=== PATIENT | female | born 1950 | race Caucasian/White ===

== ENCOUNTER → 2016-04-29 | Outpatient (CLI) | payer OTHER ==
[~2016-04-29] MED LIST: ALLER-EASE180 MG PO; ALLOPURINOL 30300 M2 PO; ATENOLOL 25 MG25 M1 PO; BIOTIN10 MG PO; CALCIUM 500 +1 EAC5 PO; CALCIUM500 M1 PO; CHILDREN'S ASPI81 M1 PO; CHOLEST CARE500 MG PO; CO Q-10100 MG PO; DAILY VITAMIN1 EAC5 PO; FISH OIL 1,001000 M2 PO; HYDROCODONE-AP1 EAC6 PO; NEXIUM40 MG PO; POTASSIUM GLUCO90 MG PO; SUPER B-50 COM1 EACH PO; TRIPLE FLEX CA1 EACH PO; ULTRAM 50MG TAB50 MG PO; VITAMIN E400 UNI2 PO
[2016-04-29 11:01] LABS: CREATININE 0.9 mg/dL (0.6-1.3)
== END ==
LOC: CAT 10:08
PROVIDERS: Surgery
DX: K43.9 Ventral hernia without obstruction or gangrene (principal); R10.9 Unspecified abdominal pain

== ENCOUNTER 2016-10-30 05:46 | Day surgery (SDC) | payer OTHER ==
[~2016-10-30] VITALS: Ht 167.6 cm; Wt 117.0 kg
--- NOTE | ~2016-10-30 | EKG ---
[address] [address] ELECTROCARDIOGRAM REPORT Name: SUMAYALISETTE Room #: [facility]#: [id number] Admission: 10/30/16 Attend Phys: Percy Escamilla MD Discharge: 10/30/16 Date of : 52 Report #: [id number] THIS REPORT FOR: //name// [facility] Test Date: 2016-10-30 Test Time: 07:38:18 Pat Name: LISETTE SHELL Department: Room: 150 3 Gender: F Computer Game Tester: CIELO : 1950 Requested By: Percy Escamilla Order Number: [id number] MD: Tad Dial Measurements Intervals [place] Rate: 60 P: 31 MT: 185 QRS: -42 QRSD: 109 T: -13 QT: 469 QTc: 469 Interpretive Statements Sinus rhythm Abnormal R-wave progression, early transition Left ventricular hypertrophy Compared to ECG 10/18/2014 09:21:40 Ventricular premature complex(es) no longer present Electronically Signed On 11-01-2016 13:08:12 CDT by Tad Dial [email or web address] <ELECTRONICALLY SIGNED> By: Tad Dial MD, FACC 11/01/16 1308 0738 Tad Dial MD, [facility] /EPI
[~2016-10-30 05:46] MED LIST changes: +NORVASC5 MG PO; +SORINE 80 MG TA80 M1 PO
[2016-10-30 08:00] VITALS: BP 113/55
[2016-10-30] MEDS ORDERED: ULTRA-LIGHT RO1 EACH MC (10:10)
[2016-10-30 11:05] VITALS: BP 113/55
[2016-12-11] MEDS ORDERED: SOTALOL 120 MG120 M1 PO (11:38)
[2016-12-11] MEDS ORDERED: ASPIR 8181 MG PO (11:39)
[2016-12-11] MEDS ORDERED: PRESERVISION T1 EACH PO (11:40)
[2016-12-11] MEDS ORDERED: TRIPLE FLEX CA1 EACH PO (11:42)
[2016-12-11] MEDS ORDERED: MULTIVITAMINS1 EAC7 PO (11:56)
== END 2016-10-30 11:45 | disposition home or self-care (01) ==
LOC: OR → TBA 05:46 → OR 11:45
DX: M23.251 Derangement of posterior horn of lateral meniscus due to old tear or injury, right knee (principal); M23.221 Derangement of posterior horn of medial meniscus due to old tear or injury, right knee; M94.261 Chondromalacia, right knee; Z98.890 Other specified postprocedural states; Z79.899 Other long term (current) drug therapy; Z88.8 Allergy status to other drugs, medicaments and biological substances
CPT/HCPCS: 50010; 50101; 50405; 51038; 54170; 56526; 62110; 62900; 70005

== ENCOUNTER 2016-12-18 05:10 | Inpatient (IN) | payer OTHER ==
[~2016-12-18] VITALS: Ht 167.6 cm; Wt 94.8 kg
--- NOTE | ~2016-12-18 | S ---
[facility] [place] [address] SURGICAL PATH RPT PROCEDURE Name: LISETTE CHOE Room #: 440-P ADM IN M.R.#: [id number] Admission: 12/18/16 Date of : 52 Discharge: Report #: [id number] Path Case #: [id number] PATHOLOGY REPORT COLLECTION DATE: 12/18/2016 RECEIVED DATE: 12/18/2016 SUBMITTING PHYS: Dr. Henrietta Swenson OTHER PHYS: Dr. Alfonso Basilio SPECIMEN(S) RECEIVED: A.Hernia sac and abdominal wall * * * * * * * * * * * * FINAL DIAGNOSIS: Fibroadipose tissue, hernia sac and abdominal wall, repair: - Congestion. 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 (IUV:pit; 12/21/2016) PATHOLOGIST: Starr Hook M.D. REPORT ELECTRONICALLY SIGNED BY: Starr Hook M.D. DATE/TIME: 12/21/2016 16:35 * * * * * * * * * * * * GROSS PATHOLOGY: Received in formalin labeled "Lisette Choe, hernia sac and abdominal wall," is a piece of fibroadipose tissue measuring 5.0 x 3.5 x 2.3 cm. additionally present in the container is a portion of pink-madrid membranous soft tissue measuring 6.0 x 3.8 x 1.2 cm No nodules or lesions are identified. Fabric Sourcer tissue is submitted in cassette A1. ([facility]; 12/19/2016) CLINICAL HISTORY: Ventral hernia INITIAL CPT CODE(S): A; 62509 Professional services performed by [facility] at [facility] [address], [place] [address] Technical services performed by [facility] at [address] [place] [id number]. [facility] [address] [place] [address] SURGICAL PATH RPT PROCEDURE Name: LISETTE CHOEE Room #: 440-P ADM IN M.R.#: [id number] Admission: 12/18/16 Date of : 52 Discharge: Report #: [id number] Path Case #: [id number] [facility], located [facility] [address] [address] PHONE: [phone] DIRECTOR: Tye Quiles M.D. * * * END OF REPORT * * *
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
[~2016-12-18 05:10] MED LIST changes: +ASPIR 8181 MG PO; +MULTIVITAMINS1 EAC7 PO; +PRESERVISION T1 EACH PO; +SOTALOL 120 MG120 M1 PO; +ULTRA-LIGHT RO1 EACH MC
[2016-12-18 06:57] LABS: HEMATOCRIT 40.4 % (37.0-47.0); HEMOGLOBIN 13.4 gm/dL (12.0-15.0)
[2016-12-18 08:29] VITALS: BP 110/55
[2016-12-18 11:24] VITALS: BP 102/56
[2016-12-18 16:00] VITALS: BP 118/70
[2016-12-18 17:24] VITALS: BP 118/70
[2016-12-18 19:50] VITALS: BP 101/63
[2016-12-19 05:13] LABS: CALCIUM 8.4 mg/dL (8.5-10.1); CREATININE 0.9 mg/dL (0.6-1.0); POTASSIUM 4.3 mmol/L (3.5-5.1)
[2016-12-19 05:14] LABS: HEMATOCRIT 35.4 % (37.0-47.0); HEMOGLOBIN 11.7 gm/dL (12.0-15.0); MCH 29.1 pg (26.0-34.0); MCV 88.3 fL (80.0-100.0); RDW 15.5 % (10.5-14.5); WBC 9.5 thou/uL (4.0-11.0)
[2016-12-19 05:23] VITALS: BP 105/59
[2016-12-19 08:44] VITALS: BP 106/56
[2016-12-19 16:34] VITALS: BP 100/55
[2016-12-19 19:12] VITALS: BP 110/56
[2016-12-20 04:26] VITALS: BP 127/75
[2016-12-20 04:37] LABS: ABSOLUTE NEUTROPHILS 5.2 thou/uL (1.4-8.2); BASOPHILS 0.5 % (0.0-2.0); EOSINOPHILS 3.3 % (0.0-3.0); HEMATOCRIT 34.3 % (37.0-47.0); HEMOGLOBIN 11.4 gm/dL (12.0-15.0); LYMPHOCYTES 22.4 % (24.0-44.0); MCH 29.4 pg (26.0-34.0); MCHC 33.1 g/dL (28.0-37.0); MCV 88.7 fL (80.0-100.0); MONOCYTES 7.5 % (1.0-8.0); PLATELET COUNT 156 thou/uL (150-400); POLYS 66.3 % (36.0-66.0); RBC 3.87 mil/uL (4.20-5.00); RDW 16.2 % (10.5-14.5); WBC 7.8 thou/uL (4.0-11.0)
[2016-12-20 04:41] LABS: MANUAL DIFF NO
[2016-12-20 04:53] LABS: CALCIUM 8.3 mg/dL (8.5-10.1); CREATININE 0.8 mg/dL (0.6-1.0); POTASSIUM 4.5 mmol/L (3.5-5.1)
[2016-12-20 08:33] VITALS: BP 133/63
[2016-12-20 16:31] VITALS: BP 100/62
[2016-12-20 19:56] VITALS: BP 96/58
[2016-12-21 03:54] VITALS: BP 98/62
[2016-12-21 06:15] LABS: ABSOLUTE NEUTROPHILS 6.2 thou/uL (1.4-8.2); BASOPHILS 0.6 % (0.0-2.0); EOSINOPHILS 3.3 % (0.0-3.0); HEMATOCRIT 36.4 % (37.0-47.0); HEMOGLOBIN 11.8 gm/dL (12.0-15.0); LYMPHOCYTES 18.5 % (24.0-44.0); MANUAL DIFF NO; MCH 28.7 pg (26.0-34.0); MCHC 32.4 g/dL (28.0-37.0); MCV 88.6 fL (80.0-100.0); MONOCYTES 7.1 % (1.0-8.0); PLATELET COUNT 175 thou/uL (150-400); POLYS 70.5 % (36.0-66.0); RBC 4.11 mil/uL (4.20-5.00); RDW 15.5 % (10.5-14.5); WBC 8.9 thou/uL (4.0-11.0)
[2016-12-21 06:29] LABS: CALCIUM 8.4 mg/dL (8.5-10.1); CREATININE 0.9 mg/dL (0.6-1.0); POTASSIUM 4.4 mmol/L (3.5-5.1)
[2016-12-21] MEDS ORDERED: PERCOCET 5-3251 EACH PO (08:58)
[2016-12-21 10:51] VITALS: BP 118/70
== END 2016-12-21 17:18 | disposition home health service (06) | DRG 355 ==
LOC: TBA 05:10 → 4S 05:10 → PRE 15:52 → 4S 12-21 17:18
PROVIDERS: Surgery
PROC: 0WUF0JZ Supplement Abdominal Wall with Synthetic Substitute, Open Approach (ICD-10-PCS; principal; 2016-12-18)
PROC: 0JB80ZZ Excision of Abdomen Subcutaneous Tissue and Fascia, Open Approach (ICD-10-PCS; principal; 2016-12-18)
PROC: 0JX80ZZ Transfer Abdomen Subcutaneous Tissue and Fascia, Open Approach (ICD-10-PCS; principal; 2016-12-18)
DX: K43.0 Incisional hernia with obstruction, without gangrene (principal); E11.9 Type 2 diabetes mellitus without complications; F41.9 Anxiety disorder, unspecified; M54.5 Low back pain; J98.9 Respiratory disorder, unspecified; K21.9 Gastro-esophageal reflux disease without esophagitis; E66.01 Morbid (severe) obesity due to excess calories; Z68.33 Body mass index [BMI] 33.0-33.9, adult; Z88.5 Allergy status to narcotic agent; Z88.6 Allergy status to analgesic agent; Z88.8 Allergy status to other drugs, medicaments and biological substances
CPT/HCPCS: 10100; 50010; 50101; 50331; 50386; 50455; 50507; 50648; 56524; 56525; 56526; 56527; 56530; 57092; 62110; 62900; 70005

== ENCOUNTER 2016-12-25 09:59 | Emergency (ER) | payer OTHER ==
[~2016-12-25] VITALS: Ht 167.6 cm; Wt 112.0 kg
--- NOTE | ~2016-12-25 | EKG ---
[place] [address] [address] [facility] [place] [address] ELECTROCARDIOGRAM REPORT Name: ELLIE SHELLANISA DOMINGUEZE Room #: DEP [facility]#: [id number] Admission: 12/25/16 Attend Phys: Discharge: 12/25/16 Date of : 52 Report #: [id number] THIS REPORT FOR: //name// [facility] ED Test Date: 2016-12-25 Test Time: 10:13:26 Pat Name: LISETTE SHELL Department: Room: Gender: F Sawyer Cork Slabs: [id number] : 1950 Requested By: Jeanine Paul Order Number: [id number] MD: Tad Dial Measurements Intervals [place] Rate: 54 P: 43 ND: 185 QRS: -24 QRSD: 101 T: -17 QT: 491 QTc: 466 Interpretive Statements Sinus rhythm Ventricular trigeminy Borderline left axis deviation Abnormal R-wave progression, early transition Compared to ECG 10/30/2016 07:38:18 Ventricular premature complex(es) now present Electronically Signed On 12-28-2016 13:23:45 CDT by Tad Dial [email or web address] <ELECTRONICALLY SIGNED> By: Tad Dial MD, [facility] 12/28/16 1323 1013 1013 Tad Dial MD, [facility] /EPI
[~2016-12-25 09:59] MED LIST changes: +PERCOCET 5-3251 EACH PO
[2016-12-25 10:22] LABS: ABSOLUTE NEUTROPHILS 6.3 thou/uL (1.4-8.2); BASOPHILS 0.5 % (0.0-2.0); EOSINOPHILS 6.9 % (0.0-3.0); HEMATOCRIT 38.8 % (37.0-47.0); LYMPHOCYTES 17.8 % (24.0-44.0); MCH 29.2 pg (26.0-34.0); MCHC 33.5 g/dL (28.0-37.0); MCV 87.2 fL (80.0-100.0); MONOCYTES 5.6 % (1.0-8.0); PLATELET COUNT 225 thou/uL (150-400); POLYS 69.2 % (36.0-66.0); RBC 4.45 mil/uL (4.20-5.00); RDW 15.1 % (10.5-14.5); WBC 9.1 thou/uL (4.0-11.0)
[2016-12-25 10:24] LABS: MANUAL DIFF NO
[2016-12-25 10:30] LABS: ANION GAP 6 mmol/L (7-16); BUN 25 mg/dL (7-18); CALCIUM 9.4 mg/dL (8.5-10.1); CHLORIDE 103 mmol/L (98-107); CO2 29 mmol/L (21-32); CREATININE 0.9 mg/dL (0.6-1.0); GLUCOSE 104 mg/dL (74-106); POTASSIUM 4.3 mmol/L (3.5-5.1); SODIUM 138 mmol/L (136-145)
[2016-12-25 10:39] LABS: ALBUMIN 3.1 g/dL (3.4-5.0); ALKALINE PHOSPHATASE 97 U/L (46-116); SGOT 44 U/L (15-37); SGPT 40 U/L (30-65); TOTAL BILIRUBIN 0.3 mg/dL (<0.1-1.0); TOTAL PROTEIN 8.3 g/dL (6.4-8.2); TROPONIN-I < 0.04 ng/mL (<0.04-0.07)
[2016-12-25 11:39] LABS: URINE BILIRUBIN NEGATIVE (Negative); URINE BLOOD NEGATIVE (Negative); URINE COLOR YELLOW; URINE GLUCOSE-RANDOM* NEGATIVE (Negative); URINE KETONES NEGATIVE (Negative); URINE NITRITE NEGATIVE (Negative); URINE PROTEIN (DIPSTICK) NEGATIVE (Negative); URINE UROBILINOGEN 0.2 E.U./dl (0.2-1.0)
[2016-12-25 16:26] VITALS: BP 142/78
== END 2016-12-25 16:40 | disposition home or self-care (01) ==
LOC: ER 09:59
PROVIDERS: Nurse Practitioner Family
DX: E86.0 Dehydration (principal); K21.9 Gastro-esophageal reflux disease without esophagitis; E78.00 Pure hypercholesterolemia, unspecified; I48.91 Unspecified atrial fibrillation; M19.90 Unspecified osteoarthritis, unspecified site; Z90.710 Acquired absence of both cervix and uterus; Z98.890 Other specified postprocedural states; Z88.6 Allergy status to analgesic agent; Z88.8 Allergy status to other drugs, medicaments and biological substances; Z88.5 Allergy status to narcotic agent

== ENCOUNTER 2017-12-17 17:06 | Emergency (ER) | payer OTHER ==
[~2017-12-17] VITALS: Ht 167.6 cm; Wt 115.7 kg
--- NOTE | ~2017-12-17 | EKG ---
[place] [address] [address] [facility] [facility] [place] [address] ELECTROCARDIOGRAM REPORT Name: ELLIE SHELLANISA DOMINGUEZE Room #: DEP [facility]#: [id number] Admission: 12/17/17 Attend Phys: Discharge: 12/17/17 Date of : 52 Report #: [id number] THIS REPORT FOR: //name// [facility] ED Test Date: 2017-12-17 Test Time: 17:16:26 Pat Name: LISETTE SHELL Department: Room: Gender: F Removable Prosthodontist: MZOOK : 1950 Requested By: Yakelin Holliday Order Number: [id number] MD: Tad Dial Measurements Intervals [place] Rate: 69 P: 25 GA: 190 QRS: -43 QRSD: 91 T: 7 QT: 426 QTc: 457 Interpretive Statements Sinus rhythm Abnormal R-wave progression, early transition Baseline wander in lead(s) V3 Compared to ECG 12/25/2016 10:13:26 Ventricular premature complex(es) no longer present Electronically Signed On 12-18-2017 13:00:42 CDT by Tad Dial [email or web address] <ELECTRONICALLY SIGNED> By: Tad Dial MD, [facility] 12/18/17 1300 1716 1716 Tad Dial MD, [facility] /EPI
[2017-12-17 17:52] LABS: ABSOLUTE NEUTROPHILS 5.1 thou/uL (1.4-8.2); EOSINOPHILS 3.5 % (0.0-3.0); HEMATOCRIT 39.2 % (37.0-47.0); MCH 27.8 pg (26.0-34.0); MCHC 33.1 g/dL (28.0-37.0); MCV 83.9 fL (80.0-100.0); MONOCYTES 5.4 % (1.0-8.0); PLATELET COUNT 197 thou/uL (150-400); POLYS 65.1 % (36.0-66.0); RBC 4.67 mil/uL (4.20-5.00); RDW 16.6 % (10.5-14.5); WBC 7.9 thou/uL (4.0-11.0)
[2017-12-17 18:11] LABS: ANION GAP 10 mmol/L (7-16); BUN 24 mg/dL (7-18); CALCIUM 9.1 mg/dL (8.5-10.1); CHLORIDE 101 mmol/L (98-107); CO2 26 mmol/L (21-32); CREATININE 0.8 mg/dL (0.6-1.0); GLUCOSE 93 mg/dL (74-106); POTASSIUM 4.1 mmol/L (3.5-5.1); SODIUM 137 mmol/L (136-145)
[2017-12-17 18:14] LABS: URINE BILIRUBIN NEGATIVE (Negative); URINE BLOOD NEGATIVE (Negative); URINE CLARITY CLEAR; URINE COLOR YELLOW; URINE GLUCOSE-RANDOM* NEGATIVE (Negative); URINE KETONES NEGATIVE (Negative); URINE LEUKOCYTES-REFLEX NEGATIVE (Negative); URINE NITRITE-REFLEX NEGATIVE (Negative); URINE PROTEIN (DIPSTICK) NEGATIVE (Negative); URINE SPECIFIC GRAVITY <= 1.005 (1.005-1.035); URINE UROBILINOGEN 0.2 E.U./dl (0.2-1.0)
[2017-12-17 18:19] LABS: ALBUMIN 3.1 g/dL (3.4-5.0); SGOT 16 U/L (15-37); SGPT 20 U/L (30-65); TOTAL BILIRUBIN 0.3 mg/dL (<0.1-1.0); TOTAL PROTEIN 8.1 g/dL (6.4-8.2); TROPONIN-I <0.06 ng/mL (<0.06)
[2017-12-17] MEDS ORDERED: PREDNISONE 20 M20 MG PO (19:39)
[2017-12-17] MEDS ORDERED: CARAFATE 1 GM TA1 G1 PO (19:48)
[2017-12-17] MEDS ORDERED: ALBUTEROL2.5 MG/31 INH (20:20)
[2017-12-17 20:50] VITALS: BP 118/70
== END 2017-12-17 20:25 | disposition home or self-care (01) ==
LOC: ER 17:06
PROVIDERS: Physician Assistant
DX: J98.01 Acute bronchospasm (principal); M10.9 Gout, unspecified; K21.9 Gastro-esophageal reflux disease without esophagitis; E78.00 Pure hypercholesterolemia, unspecified; M19.90 Unspecified osteoarthritis, unspecified site; I48.91 Unspecified atrial fibrillation; I10 Essential (primary) hypertension; Z87.19 Personal history of other diseases of the digestive system; Z88.8 Allergy status to other drugs, medicaments and biological substances; Z88.5 Allergy status to narcotic agent; Z91.048 Other nonmedicinal substance allergy status; Z98.890 Other specified postprocedural states; Z90.710 Acquired absence of both cervix and uterus

== ENCOUNTER 2018-04-16 14:28 | Inpatient (IN) | payer OTHER ==
[~2018-04-16] VITALS: Ht 167.6 cm; Wt 117.5 kg
--- NOTE | ~2018-04-16 | EKG ---
[address] [address] ELECTROCARDIOGRAM REPORT Name: LISETTE SHELL Room #: 358-P ADM IN M.R.#: [id number] Admission: 04/16/18 Attend Phys: Jim Chauhan MD Discharge: Date of : 52 Report #: [id number] THIS REPORT FOR: //name// [facility] ED Test Date: 2018-04-16 Test Time: 17:15:19 Pat Name: LISETTE SHELL Department: Room: 358 Gender: F Curriculum And Instruction Specialist: DAYAMI : 1950 Requested By: Sabrina Sutton Order Number: [id number] MD: Bruce Mckee Measurements Intervals [place] Rate: 67 P: 41 NE: 186 QRS: -52 QRSD: 92 T: 2 QT: 434 QTc: 458 Interpretive Statements Sinus rhythm Left anterior fascicular block Abnormal R-wave progression, early transition Borderline T abnormalities, inferior leads Compared to ECG 12/17/2017 17:16:26 Left anterior fascicular block now present T-wave abnormality now present Electronically Signed On 04-18-2018 11:08:27 AUTOMOTIVE SHOP FOREMAN by Bruce Mckee [email or web address] <ELECTRONICALLY SIGNED> By: Bruce Mckee MD 04/18/18 1108 1715 1715 Bruce Mckee MD /EPI
--- NOTE | ~2018-04-16 | CATHLAB ---
[facility] [address] [place] [address] INVASIVE PROCEDURE REPORT Name: LISETTE SHELL Room #: 358-P ADM IN .R.#: [id number] Admission: 04/16/18 Attend Phys: Jim Chauhan MD Discharge: Date of : 52 Date of Service: 04/18/18 1139 Report #: [id number] THIS REPORT FOR: //name// APPROVED REPORT Study performed: 04/18/2018 08:32:18 Patient Details Patient Status: In-Patient Room #: The patient is a 67 year-old female Event Personnel Bakari Resendez Director Of Partnerships, Dustin Grace RN RN, Romana Manning RTR, Itzel Horton Amber Monitor Procedures Performed Art Access - R femoral artery* 76057 Initial Mod Sed Same Phys/QHP Gr5y [id number] 96184 Mod Sed Same Phys/QHP Ea [id number] Left Heart Cath w/or w/o Coronaries [id number] [facility] Hemostasis with Manual pressure Indication Arrhythmia, Dyspnea, Positive stress test, Chest pain Risk Factors Physical Activity, Hypertension Procedure Narrative The patient was brought urgently to the Cardiac Catheterization Laboratory and was prepped and draped in a sterile manner. The Right Groin^ was infiltrated with 1% Lidocaine subcutaneous anesthesia. A PINNACLE 4FR Sheath #[id number] sheath was inserted into the RFA^. Coronary angiography was performed using coronary diagnostic catheters. The right coronary system was accessed and visualized with a JR 4 catheter. The left coronary system was accessed and visualized with a JL 4 catheter. The left ventricle was accessed and visualized with a Pigtail catheter. Left ventricular/Aortic Valve gradient assessed via catheter pullback. Left ventriculogram was performed in PASCAL projection. Hemostasis was obtained with manual pressure following sheath removal without any complications. The patient tolerated the procedure well and there were no complications associated with the procedure. There was no hematoma. Intraoperative Conscious Sedation Sedation start time: 09:05 Case end Time: [facility] [address] [place] [address] INVASIVE PROCEDURE REPORT Name: LISETTE SHELL THIAGO Room #: 358-P [facility]#: [id number] Admission: 04/16/18 Attend Phys: Jim Chauhna MD Discharge: Date of : 52 Date of Service: 04/18/18 1139 Report #: [id number] 09:34 Fentanyl --50 mcg Versed 1 mg Fluoro Time: 1.50 minutes Dose: DAP 4352 cGycm2 559 mGy Contrast Type and Amount: Omnipaque 80 ml Coronary Angiography The patient's coronary anatomy is right dominant. Diagnostic Cath Left Main This is a patent vessel, with no flow-limiting lesions. LAD This is a moderate size caliber vessel, traversing the anterior wall and wrapping around the apex. There may be some minimal luminal irregularities within the mid segment. Diagonal 1 It is difficult to evaluate due to overlapping branch vessels originating within the same segment of the LAD. This is a patent vessel with no flow-limiting lesions. There may be some mild disease in the ostium. Circumflex This is a moderate size caliber vessel, patent with no flow-limiting lesions. Supplies 2 moderate size OM vessels. OM1 This is a patent vessel, with no flow-limiting lesions. OM2 This is a patent vessel, with no flow-limiting lesions. Right Coronary There is a dominant vessel, appears to have minimal luminal irregularities in the mid segment. R PDA This is a small-caliber vessel, with no flow-limiting lesions. RPLV This is a small-caliber vessel, with no flow-limiting lesions. Left Ventriculography The left ventricle is normal in size with normal contractility. The left ventricular ejection fraction is estimated to be 55-60%. Hemodynamics The aortic pressure is 157/81 mmHg with a mean of 111 mmHg. The left ventricular pressure is 142/9 mmHg with a mean of mmHg. The left ventricular end diastolic pressure is 26 mmHg. Conclusion 1. Patent coronary arteries with no flow-limiting lesions. There may be some mild disease in the first diagonal artery. [facility] [address] [address] INVASIVE PROCEDURE REPORT Name: LISETTE SHELL THIAGO Room #: 358-P ADM IN M.R.#: [id number] Admission: 04/16/18 Attend Phys: Jim Chauhan MD Discharge: Date of : 52 Date of Service: 04/18/18 1139 Report #: [id number] 2. Normal LV systolic function. 3. Recommend aggressive risk factor management. <ELECTRONICALLY SIGNED> By: Bakari Resendez MD 04/18/18 1139 1139 Bakari Resendez MD /INF
--- NOTE | ~2018-04-16 | EKG ---
[address] [address] ELECTROCARDIOGRAM REPORT Name: LISETTE SHELL Room #: 358-P ADM IN M.R.#: [id number] Admission: 04/16/18 Attend Phys: Jim Chauhan MD Discharge: Date of : 52 Report #: [id number] THIS REPORT FOR: //name// [facility] ED Test Date: 2018-04-16 Test Time: 14:38:06 Pat Name: LISETTE SHELL Department: Room: 358 Gender: F Manager Trading: CHRIS : 1950 Requested By: Sabrina Sutton Order Number: [id number] MD: Bruce Mckee Measurements Intervals [place] Rate: 69 P: 24 [place]: 185 QRS: -51 QRSD: 99 T: 19 QT: 440 QTc: 472 Interpretive Statements Sinus rhythm Ventricular premature complex LAD, consider left anterior fascicular block Compared to ECG 12/17/2017 17:16:26 Ventricular premature complex(es) now present Electronically Signed On 04-18-2018 11:07:48 GLASS TUBE BENDER by Bruce Mckee [email or web address] <ELECTRONICALLY SIGNED> By: Bruce Mckee MD 04/18/18 1107 1438 1438 Bruce Mckee MD /EPI
--- NOTE | ~2018-04-16 | HC ---
[facility] [place] [address] CONSULTATION Name: LISETTE SHELL Room #: 358-[facility] IN M.R.#: [id number] Admission: 04/16/18 Attend Phys: Jim Chauhan MD Discharge: 04/18/18 Date of : 52 Report #: [id number] THIS REPORT FOR: //name// CC: Jim Chauhan [facility] physician/PCP CARDIOLOGY CONSULTATION REASON FOR CONSULTATION: Chest pain. HISTORY OF PRESENT ILLNESS: The patient is a 67-year-old female with a history of symptomatic PVCs, previously followed by Dr. Barragan at [facility]. She was treated with sotalol 120 mg b.i.d. She follows with Dr. Swenson as she has had multiple recurrent abdominal surgeries for incarcerated recurrent incisional ventral hernias, with last surgery in 11/2016. She recently saw Dr. Spivey in clinic and she complained of some exertional chest heaviness and tightness that was relieved with rest that would radiate to the neck and was associated with shortness of breath. She, therefore, underwent a nuclear stress test a few weeks ago, which showed some reversible anterior and apical ischemia. She called in yesterday with worsening chest pain. Recently, her sotalol was discontinued and started on metoprolol. She feels that this correlated with the increased palpitations and worsening chest pain. She denies PND or orthopnea. She denies presyncope or syncope. PAST MEDICAL HISTORY: Includes: 1. 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 2. Hypertension. 3. Chronic bronchitis. 4. Chronic obstructive pulmonary disease. 5. Recurrent ventral hernias. SOCIAL HISTORY: She does not smoke. FAMILY HISTORY: Noncontributory. ALLERGIES: MULTIPLE AND INCLUDE MORPHINE, NSAIDS, ATENOLOL AND ROSUVASTATIN. MEDICATIONS: Include a recent change from sotalol to Toprol 25 b.i.d., allopurinol, aspirin, fish oil, calcium, multivitamin, potassium, vitamin E, amlodipine and Nexium. REVIEW OF SYSTEMS: GENERAL: She denies fevers or chills. HEENT: No sore throat or congestion. CARDIOVASCULAR: No chest pain currently today. PULMONARY: No productive cough or wheezing. [address] [address] CONSULTATION Name: LISETTE SHELL THIAGO Room #: 358-P [facility] IN ..#: [id number] Admission: 04/16/18 Attend Phys: Jim Chauhan MD Discharge: 04/18/18 Date of : 52 Report #: [id number] GASTROINTESTINAL: No nausea or vomiting. GENITOURINARY: No dysuria. MUSCULOSKELETAL: No myalgias or arthralgias. ENDOCRINE: No heat or cold intolerance. NEUROLOGIC: No focal weakness or prior strokes. PHYSICAL EXAMINATION: VITAL SIGNS: Temperature 36.7, pulse 67, respirations 16, blood pressure 108/62 and sats 95%. GENERAL: She is in no acute distress, alert and oriented x 3. HEENT: Sclerae are anicteric. Oropharynx is clear. NECK: Supple, with no thyromegaly. HEART: Regular rate and rhythm, with no murmurs, rubs or gallops. LUNGS: Clear to auscultation bilaterally. ABDOMEN: Soft, nontender and nondistended, with no hepatosplenomegaly. EXTREMITIES: There is no clubbing, cyanosis or edema. NEUROLOGIC: Cranial nerves 2-12 are intact. DIAGNOSTIC DATA: Her 12-lead EKG shows sinus rhythm, with no ischemic changes and occasional PVCs. Her telemetry shows occasional PVCs and sinus rhythm. LABORATORY DATA: CBC is normal. Chemistry is normal, with a creatinine of 0.8. Troponins are negative x 3. Chest x-ray per my interpretation shows no acute process. ASSESSMENT: 1. Possible unstable angina. 2. Symptomatic premature ventricular contractions. PLAN: In summary, the patient presents with worsening chest pain and recently had an abnormal nuclear stress test. Based on these findings, I have recommended that she undergo cardiac catheterization tomorrow. With regards to her PVCs, these appear to have worsened since transitioning from sotalol to metoprolol. We will therefore resume sotalol 120 b.i.d. If her cardiac catheterization is normal tomorrow, she can be discharged on her sotalol 120 b.i.d. She can follow up with me in 1 month and we can try and optimize her rhythm strategy for PVCs. We may consider having her wear a personnel monitor. <ELECTRONICALLY SIGNED> By: Bruce Mckee MD 04/20/18 1547 1216 26 Bruce Mckee MD /nt
[~2018-04-16 14:28] MED LIST changes: +ALBUTEROL2.5 MG/31 INH; +CARAFATE 1 GM TA1 G1 PO; +PREDNISONE 20 M20 MG PO
[2018-04-16 15:48] VITALS: BP 119/70
[2018-04-16 15:59] LABS: ABSOLUTE NEUTROPHILS 4.9 thou/uL (1.4-8.2); BASOPHILS 1.2 % (0.0-2.0); EOSINOPHILS 3.5 % (0.0-3.0); HEMATOCRIT 39.7 % (37.0-47.0); LYMPHOCYTES 23.4 % (24.0-44.0); MCHC 32.8 g/dL (28.0-37.0); MCV 85.5 fL (80.0-100.0); MONOCYTES 6.6 % (1.0-8.0); PLATELET COUNT 203 thou/uL (150-400); POLYS 65.3 % (36.0-66.0); RBC 4.65 mil/uL (4.20-5.00); RDW 15.7 % (10.5-14.5); WBC 7.5 thou/uL (4.0-11.0)
[2018-04-16] MEDS ORDERED: TOPROL XL25 MG PO (16:03)
[2018-04-16 16:07] LABS: ANION GAP 9 mmol/L (7-16); BUN 22 mg/dL (7-18); CHLORIDE 103 mmol/L (98-107); CO2 28 mmol/L (21-32); CREATININE 0.9 mg/dL (0.6-1.0); GLUCOSE 93 mg/dL (74-106); SODIUM 140 mmol/L (136-145)
[2018-04-16] MEDS ORDERED: FISH OIL 1,001000 M2 PO (16:14)
[2018-04-16] MEDS ORDERED: ASPIR 8181 MG PO (16:14)
[2018-04-16 16:15] LABS: ALBUMIN 3.2 g/dL (3.4-5.0); SGOT 14 U/L (15-37); SGPT 19 U/L (30-65); TOTAL BILIRUBIN 0.3 mg/dL (<0.1-1.0); TOTAL PROTEIN 8.6 g/dL (6.4-8.2); TROPONIN-I <0.06 ng/mL (<0.06)
[2018-04-16] MEDS ORDERED: CALCIUM 500 +1 EAC5 PO (16:15)
[2018-04-16] MEDS ORDERED: HAIR, SKIN & N1 EAC2 PO (16:16)
[2018-04-16 19:23] VITALS: BP 123/69
[2018-04-16 19:36] VITALS: BP 101/61
[2018-04-16 20:02] VITALS: BP 144/86
[2018-04-16 23:24] VITALS: BP 124/75
[2018-04-17 05:07] VITALS: BP 99/58
[2018-04-17 05:43] LABS: HEMATOCRIT 37.6 % (37.0-47.0); HEMOGLOBIN 12.1 gm/dL (12.0-15.0); MCH 27.5 pg (26.0-34.0); MCHC 32.3 g/dL (28.0-37.0); MCV 85.2 fL (80.0-100.0); RBC 4.41 mil/uL (4.20-5.00); RDW 15.8 % (10.5-14.5); WBC 5.4 thou/uL (4.0-11.0)
[2018-04-17 05:57] LABS: ANION GAP 9 mmol/L (7-16); BUN 21 mg/dL (7-18); CALCIUM 8.6 mg/dL (8.5-10.1); CHLORIDE 106 mmol/L (98-107); CO2 25 mmol/L (21-32); CREATININE 0.8 mg/dL (0.6-1.0); GLUCOSE 107 mg/dL (74-106); POTASSIUM 4.1 mmol/L (3.5-5.1); SODIUM 140 mmol/L (136-145); TROPONIN-I <0.06 ng/mL (<0.06)
[2018-04-17 07:27] VITALS: BP 100/66
[2018-04-17 11:20] VITALS: BP 108/62
[2018-04-17 15:26] VITALS: BP 120/69
[2018-04-17 20:18] VITALS: BP 109/73
[2018-04-18 05:35] VITALS: BP 113/72
[2018-04-18 07:57] VITALS: BP 114/72
[2018-04-18 11:29] VITALS: BP 113/69
[2018-04-18] MEDS ORDERED: TRAMADOL 50 MG50 MG PO (12:21)
[2018-04-18 14:31] VITALS: BP 113/69
[2018-04-18 16:41] VITALS: BP 139/62
== END 2018-04-18 17:19 | disposition home or self-care (01) | DRG 287 ==
LOC: ER 14:28 → 3W 16:49 → EROBS 16:49 → 3W 19:49
PROVIDERS: Hospitalist; Student in an Organized Health Care Education/Training Program
PROC: B2151ZZ Fluoroscopy of Left Heart using Low Osmolar Contrast (ICD-10-PCS; principal; 2018-04-18)
PROC: 4A023N7 Measurement of Cardiac Sampling and Pressure, Left Heart, Percutaneous Approach (ICD-10-PCS; principal; 2018-04-18)
PROC: B2111ZZ Fluoroscopy of Multiple Coronary Arteries using Low Osmolar Contrast (ICD-10-PCS; principal; 2018-04-18)
DX: R07.9 Chest pain, unspecified (principal); I49.3 Ventricular premature depolarization; M10.9 Gout, unspecified; I48.91 Unspecified atrial fibrillation; M19.90 Unspecified osteoarthritis, unspecified site; K21.9 Gastro-esophageal reflux disease without esophagitis; E78.00 Pure hypercholesterolemia, unspecified; K08.409 Partial loss of teeth, unspecified cause, unspecified class; J44.9 Chronic obstructive pulmonary disease, unspecified; Z79.82 Long term (current) use of aspirin; Z90.710 Acquired absence of both cervix and uterus; Z88.6 Allergy status to analgesic agent; Z88.8 Allergy status to other drugs, medicaments and biological substances; Z88.9 Allergy status to unspecified drugs, medicaments and biological substances; Z79.899 Other long term (current) drug therapy
CPT/HCPCS: 10879

== ENCOUNTER → 2019-06-13 | Outpatient (CLI) | payer OTHER ==
[~2019-06-13] MED LIST changes: +HAIR, SKIN & N1 EAC2 PO; +TOPROL XL25 MG PO; +TRAMADOL 50 MG50 MG PO
== END ==
LOC: SJCVC 15:31
DX: I49.3 Ventricular premature depolarization (principal); R94.31 Abnormal electrocardiogram [ECG] [EKG]; I10 Essential (primary) hypertension; E78.5 Hyperlipidemia, unspecified; E11.9 Type 2 diabetes mellitus without complications; F41.9 Anxiety disorder, unspecified; Z79.82 Long term (current) use of aspirin; Z79.899 Other long term (current) drug therapy; Z82.49 Family history of ischemic heart disease and other diseases of the circulatory system; Z98.890 Other specified postprocedural states

== ENCOUNTER → 2019-10-19 | Outpatient (CLI) | payer OTHER | LOC: SJCVC 15:48 | PROVIDERS: ATTEND Internal Medicine | DX: I25.10 Atherosclerotic heart disease of native coronary artery without angina pectoris (principal); E78.5 Hyperlipidemia, unspecified; R00.2 Palpitations; I10 Essential (primary) hypertension ==

== ENCOUNTER → 2020-06-20 | Outpatient (CLI) | payer OTHER | LOC: SJCVC 15:04 | PROVIDERS: ATTEND Internal Medicine Cardiovascular Disease | DX: R94.31 Abnormal electrocardiogram [ECG] [EKG] (principal); I49.1 Atrial premature depolarization; I49.3 Ventricular premature depolarization; I10 Essential (primary) hypertension; E78.5 Hyperlipidemia, unspecified; Z88.1 Allergy status to other antibiotic agents; Z88.8 Allergy status to other drugs, medicaments and biological substances; Z79.82 Long term (current) use of aspirin; Z79.899 Other long term (current) drug therapy; Z98.890 Other specified postprocedural states; Z82.49 Family history of ischemic heart disease and other diseases of the circulatory system; Z80.9 Family history of malignant neoplasm, unspecified; Z72.89 Other problems related to lifestyle ==

== ENCOUNTER → 2020-07-09 | Outpatient (CLI) | payer OTHER ==
[~2020-07-09] MED LIST changes: +ALENDRONATE SOD70 MG PO; +ALLEGRA ALLERG180 MG PO; +ASA81BEC PO; +BETAPACE AF120 MG PO; +CALCIUM500 MG PO; +CO-ENZYME Q-1010 MG PO; +CRANBERRY500 M3 PO; +D-MANNOSE1 GM PO; +HYDROCHLOROTHIA25 M1 PO; +LISINOPRIL10 MG PO; +MACROBID 100 M100 M1 PO; +MULTI VITAMIN1 EACH PO; +VITAMIN D3100 MCG PO
== END ==
LOC: SJCVCIMAG 14:24
PROVIDERS: ATTEND Internal Medicine
DX: I07.1 Rheumatic tricuspid insufficiency (principal); I11.9 Hypertensive heart disease without heart failure; I25.10 Atherosclerotic heart disease of native coronary artery without angina pectoris; E78.00 Pure hypercholesterolemia, unspecified; R00.2 Palpitations; E11.9 Type 2 diabetes mellitus without complications; M10.9 Gout, unspecified; M81.0 Age-related osteoporosis without current pathological fracture; Z98.890 Other specified postprocedural states; Z88.8 Allergy status to other drugs, medicaments and biological substances; Z79.82 Long term (current) use of aspirin; Z79.899 Other long term (current) drug therapy; Z82.49 Family history of ischemic heart disease and other diseases of the circulatory system

== ENCOUNTER → 2020-07-15 | Outpatient (CLI) | payer OTHER ==
[~2020-07-15] VITALS: Ht 167.6 cm; Wt 122.5 kg
== END ==
LOC: LAB 14:31
PROVIDERS: ATTEND Surgery
DX: Z01.812 Encounter for preprocedural laboratory examination (principal); Z20.822 Contact with and (suspected) exposure to COVID-19

== ENCOUNTER 2020-07-19 06:23 | Inpatient (IN) | payer OTHER ==
[~2020-07-19] VITALS: Ht 167.6 cm; Wt 121.6 kg
[2020-07-19 07:39] LABS: HEMATOCRIT 38.5 % (37.0-47.0); HEMOGLOBIN 12.7 gm/dL (12.0-15.0); MCH 30.2 pg (26.0-34.0); MCV 91.3 fL (80.0-100.0); RBC 4.21 mil/uL (4.20-5.00); RDW 16.1 % (10.5-14.5); WBC 8.7 thou/uL (4.0-11.0)
[2020-07-19 07:43] LABS: CALCIUM 8.8 mg/dL (8.5-10.1); POTASSIUM 3.9 mmol/L (3.5-5.1)
[2020-07-19 08:30] VITALS: BP 114/65
[2020-07-19 17:00] VITALS: BP 96/64
[2020-07-19 17:15] VITALS: BP 103/61
[2020-07-19 17:30] VITALS: BP 97/64
[2020-07-19 17:45] VITALS: BP 94/61
[2020-07-19 18:00] VITALS: BP 98/63
--- NOTE | 2020-07-19 20:25 | NUR ---
Pt transferred to unit from PACU. Wound VAC on abdominal incison. J.P. drains in place. Epidural infusing. Pt states her pain is elevated, but after repositioning she states pain is a lot better. De La O catheter in place. Admission completed. Report given to tucker BROWN.
[2020-07-20 05:15] LABS: HEMATOCRIT 32.8 % (37.0-47.0); MCH 29.6 pg (26.0-34.0); MCHC 32.1 g/dL (28.0-37.0); MCV 92.2 fL (80.0-100.0); RBC 3.56 mil/uL (4.20-5.00); RDW 15.9 % (10.5-14.5); WBC 11.2 thou/uL (4.0-11.0)
[2020-07-20 05:29] LABS: HEMOGLOBIN 10.5 gm/dL (12.0-15.0)
[2020-07-20 05:33] LABS: CALCIUM 7.7 mg/dL (8.5-10.1); CREATININE 0.8 mg/dL (0.6-1.0); MAGNESIUM 1.8 mg/dL (1.8-2.4); POTASSIUM 3.4 mmol/L (3.5-5.1)
[2020-07-20 06:08] LABS: FOLIC ACID 22.1 ng/mL (8.6-58.9)
--- NOTE | 2020-07-20 06:42 | NUR ---
RECIEVED CARE OF THIS PATIENT AT 1900. PATIENT ALERT AND ORIENTED X4. WOUND VAC MID ABD INTACT AT 125 CONT. HAS OS MONITOR ON. FERNANDEZ PATENT. SCD'S ON. SUMA X2. EPIDURAL PATENT. ON BEDREST, USES BEDPAN. SLEPT OFF ANF ON DURING NIGHT.
[2020-07-20 08:55] VITALS: BP 104/62
[2020-07-20 15:50] VITALS: BP 129/69
--- NOTE | 2020-07-20 19:41 | NUR ---
Pt up in the reclinermost of the morning. Woundvac in place. No pain relief with pump, MD called orders received to change pump settings from 10 to 12. Fentanyl IV given for pain relief. IV placed by IV team. SCD's in place. De La O to be DC'd tomorrow. SUMA drains in place. drain 2 90cc, drain 1 35cc. Capnoagraphy machine in room. IV potassium and Magnesium rplaced. Woundvac in place on abdomen.
[2020-07-20 21:51] VITALS: BP 126/70
[2020-07-20] MEDS ORDERED: FLONASE 0.05%50 MCG NARES (23:32)
[2020-07-20] MEDS ORDERED: FLONASE 0.05%50 MCG NASAL (23:34)
--- NOTE | 2020-07-21 03:21 | NUR ---
ASSESSED AT START OF SHIFT. PT A&OX4 IV INTACT. EPIDURAL PUMP INTACT AND INFUSING @12ML/HR. WOUNDVAC IN ABD WALL. 2JP DRAINS INTACT. PT C/O OF SINUSES AND DRYNESS IN NOSTRILS STATES TAKES FLONASE AT HOME. ONCALL ELEVATOR TECHNICIAN NOTIFIED AND ORDERS RECIEVED. PT EXPRESSED RELIEF. ON 2L OF O2 WITH BUBBLES. SCD'S ON BLE. FOLLEY INTACT. FALL PREC IN PLACE AND CALL LIGHT AT REACH.
[2020-07-21 05:07] LABS: ABSOLUTE NEUTROPHILS 6.6 thou/uL (1.4-8.2); BASOPHILS 0.7 % (0.0-2.0); EOSINOPHILS 2.8 % (0.0-3.0); HEMATOCRIT 32.4 % (37.0-47.0); HEMOGLOBIN 10.6 gm/dL (12.0-15.0); LYMPHOCYTES 14.4 % (24.0-44.0); MCH 30.4 pg (26.0-34.0); MCHC 32.8 g/dL (28.0-37.0); MCV 92.7 fL (80.0-100.0); MONOCYTES 7.7 % (1.0-8.0); PLATELET COUNT 156 thou/uL (150-400); POLYS 74.4 % (36.0-66.0); WBC 8.9 thou/uL (4.0-11.0)
[2020-07-21 05:35] LABS: CALCIUM 7.7 mg/dL (8.5-10.1); CREATININE 0.8 mg/dL (0.6-1.0); POTASSIUM 3.6 mmol/L (3.5-5.1)
--- NOTE | 2020-07-21 14:47 | NUR ---
AT BEGINNING OF SHIFT PT WAS VERY UPSET. AT 0750 RN WENT INTO TO
--- NOTE | 2020-07-21 15:48 | NUR ---
ABD BINDER ARRIVED AND PLACED ON PT. PT WALKED WITH RN FULL LAP AROUND UNIT WITH O2, EPIDURAL, AND GAIT BELT. PT TOLERATED WITH WITH OUT ANY DIFFICULTIES.
--- NOTE | 2020-07-21 15:53 | NUR ---
WHEN THIS RN ARRIVED THIS AM NIGHT RN STATED FERNANDEZ CATHETER WAS REMOVED THIS AM PRIOR TO SHIFT CHANGE. SURGEON ARRIVED AT 0930 AND ASKED WHY PT DID NOT HAVE A FERNANDEZ CATHETER IN PLACE PT STILL HAS EPIDURAL IN PLACE. SURGEON STATED NO ORDER WAS GIVEN TO REMOVE CATHETER. NEW ORDER GIVEN TO THIS RN TO PLACE NEW FERNANDEZ CATHETER AND NOT TO REMOVE UNTIL ORDER GIVEN TO REMOVE. NEW FERNANDEZ PLACED AT 0945 WITH OUT AND DIFFICULTY.
[2020-07-21 16:50] VITALS: BP 125/76
--- NOTE | 2020-07-21 19:21 | NUR ---
REPORT GIVEN TO ONCOMING NURSE CONSTANCE. PT HAS HAD TWO WALKS TODAY DUE TO GETTING ABD BINDER LATE IN DAY. IT WAS COMMUNICATED TO NURSE AND PT TO TRY AND GET ANOTHER WALK IN BEFORE BEDTIME.
[2020-07-21 20:25] VITALS: BP 117/69
--- NOTE | 2020-07-21 21:48 | NUR ---
ASSESSED AT START OF SHIFT. PT A&OX4. AMBULATED PT TONIGHT WALKED THE HALLWAYS TWICE. ABDOMINAL BINDER IN PLACE. EPIDURAL PUMP INTACT AND INFUSING. PT RATES PAIN UNDER CONTROL. IV INTACT AND FLUIDS INFUSING. PT STILL NPO FOR BOWEL REST. ON 2L OF O2. 2 SUMA DRAINS INTACT AND SEROSANGUINEOUS DRAINAGE NOTED. SCD'S ON BLE. FALL PREC IN PLACE AND CALL LIGHT AT REACH WILL CONT TO MONITOR.
[2020-07-22 00:48] VITALS: BP 114/62
[2020-07-22 05:26] LABS: CALCIUM 7.2 mg/dL (8.5-10.1); CREATININE 0.7 mg/dL (0.6-1.0); POTASSIUM 3.9 mmol/L (3.5-5.1)
[2020-07-22 05:27] LABS: ABSOLUTE NEUTROPHILS 5.8 thou/uL (1.4-8.2); BASOPHILS 0.6 % (0.0-2.0); EOSINOPHILS 4.3 % (0.0-3.0); HEMATOCRIT 32.2 % (37.0-47.0); HEMOGLOBIN 10.5 gm/dL (12.0-15.0); LYMPHOCYTES 16.7 % (24.0-44.0); MCH 30.4 pg (26.0-34.0); MCHC 32.5 g/dL (28.0-37.0); MCV 93.7 fL (80.0-100.0); MONOCYTES 6.6 % (1.0-8.0); PLATELET COUNT 165 thou/uL (150-400); POLYS 71.8 % (36.0-66.0); RBC 3.44 mil/uL (4.20-5.00); WBC 8.1 thou/uL (4.0-11.0)
[2020-07-22 07:50] VITALS: BP 124/76
--- NOTE | 2020-07-22 09:30 | O ---
[facility] [place] [address] OPERATIVE REPORT Name: LISETTE SHELL Room #: 447-P ADM IN M.R.#: [id number] Admission: 07/19/20 Attend Phys: Henrietta Swenson MD, Discharge: Date of : 52 Report #: [id number] THIS REPORT FOR: cc: FAM - No family physician/PCP FAM - Family physician unknown Henrietta Swenson MD FACS ~ DATE OF SERVICE: 07/19/2020 PREOPERATIVE DIAGNOSES: 1. Incarcerated recurrent incisional ventral hernia. 2. Morbid obesity. 3. Hypertension. 4. Several other comorbid conditions. POSTOPERATIVE DIAGNOSES: 1. Incarcerated recurrent incisional ventral hernia. 2. Morbid obesity. 3. Hypertension. 4. Several other comorbid conditions. 5. Loss of abdominal domain. PROCEDURES PERFORMED: 1. Exploratory laparotomy with extensive lysis of adhesions. 2. Complex abdominal wall reconstruction with open repair of an incarcerated recurrent incisional ventral hernia using bioresorbable mesh. 3. Debridement of nonviable/ischemic abdominal wall fascia and hernia sac. 4. Bilateral component separation of the anterior abdominal wall. 5. Adjacent tissue transfer closure of the anterior abdominal wall, measuring 44 x 42 cm in dimension (1848 square cm). 6. Placement of a topical wound VAC device (Prevena). SURGEON: Henrietta Swenson MD MAPLE PRODUCTS MAKER: ESTEBAN Travis. ANESTHESIA: General endotracheal anesthesia. ESTIMATED BLOOD LOSS: Minimal (less than 50 mL). COMPLICATIONS: None appreciated. SPECIMENS: All nonviable/ischemic and necrotic hernia sac and abdominal wall fascia to pathology. INDICATIONS: The patient is a 70-year-old morbidly obese female, who has [address] [address] OPERATIVE REPORT Name: LISETTE SHELL Room #: 447-P [facility] IN M.R.#: [id number] Admission: 07/19/20 Attend Phys: Henrietta Swenson MD, Discharge: Date of : 52 Report #: [id number] undergone multiple attempts, a complex closure of her abdominal wall herniation in the past. Most recently was 2016 and unfortunately, she has had evidence of recurrence of the midline bulging, containing small bowel and omentum that was diagnosed by CT scan and physical exam. After thorough consultation with the patient, indication was for the above-mentioned procedures today. DESCRIPTION OF PROCEDURE: After explaining the risks, benefits and alternatives of the procedure with the patient in detail in the preoperative holding area and obtaining consent, the patient was brought to the operating room and placed supine on the operating room table. After conducting a thorough timeout procedure verifying correct patient and procedure, the patient was given general endotracheal anesthesia. Once adequate anesthesia was obtained, her SCDs were hooked up to pneumatic compression device and she was given a preoperative dose of antibiotics in line with the SCIP protocol. The patient's abdomen was now prepped and draped in standard surgical sterile fashion. A #10 bladed scalpel was used to create a longitudinal midline wound from the subxiphoid location to the suprapubic location following her prior incision site. Electrocautery was used to carry this down through skin and subcutaneous tissues to ensure hemostasis. I entered into the abdomen in the most cephalad aspect where I was able to place a finger through the fascial incision and control the opening to prevent injury to the underlying structures from thermal burn. I continued to open the entire midline fascial wound in this setting. Evaristo clamps were placed along the fascial edges and this was elevated and I took down all adhesions of small bowel and omentum that were incarcerated through the defect. This was done all the way around into the intraperitoneal space and I was then able to fully reduce everything back into an intraabdominal space. As the patient has undergone multiple attempts, a transversus abdominis release as well as a retrorectus repair, I elected to perform an Onlay. Attempts at medializing the midline fascial wound with Evaristo clamps showed significant tension. I therefore created large skin flaps right along the fascia circumferentially using electrocautery. I debrided back all nonviable/ischemic and necrotic hernia sac and fascia to arrive upon healthy vascularized tissue throughout. I now scored along the lateral border of the rectus abdominis muscle bilaterally using electrocautery, which allowed for significant medial mobilization of the midline fascial wound and was a complete bilateral component separation technique. I now closed the midline fascial wound using looped #1 PDS in standard running fashion. I now selected a piece of Phasix mesh measuring 30 x 25 cm in dimension. This was tailored to the abdominal wall and then was anchored to the abdominal wall using numerous sutures of 0 PDS suture as well as 40 mL of Tisseel to plaster it to the abdominal wall tightly as an onlay. Two 19-Uzbek round Jose-Daugherty drains were now placed in the subcutaneous space and anchored to the skin using 2-0 nylon. As the patient had a large midline hernia, the subcutaneous tissue was thinned out significantly and as such, I did elect to perform adjacent tissue transfer closure with medially rotated vascularized pedicles of subcutaneous fat for mesh coverage. Each of the large [address] [address] OPERATIVE REPORT Name: LISETTE SHELL Room #: 447-P [facility] IN Richard.Calderon.#: [id number] Admission: 07/19/20 Attend Phys: Henrietta Swenson MD, Discharge: Date of : 52 Report #: [id number] skin flaps were elevated and counter incisions were made internally using electrocautery to allow these rotated vascularized flaps to the midline. These were then anchored over the mesh using several layers of interrupted inverted 3-0 Vicryl suture. This allowed me to bring everything together at the midline with adequate tissue coverage over the mesh. Dermis was then approximated with inverted interrupted 3-0 Vicryl and skin was closed with skin titus. A topical Prevena wound VAC was then applied as well as an abdominal binder completing the procedure. At the end of the procedure, all instruments, needle and sponge counts were correct. The patient tolerated the procedure without incident, was awakened in the operating room and transitioned to the recovery room in stable condition with no apparent complications. <ELECTRONICALLY SIGNED> By: Henrietta Swenson MD, FACS 07/22/20 0930 1413 1502 Henrietta Swenson MD, FACS /nt
--- NOTE | 2020-07-22 15:16 | NUR ---
ASSUMED PATIENT CARE AT 0700. A/O X4. PATIENT WALKED WITH RN TWO TIMES AROUND UNIT. TOLERATED WELL. STILL ON EPIDURAL GTT. ABD INCISION WITH WOUND VAC. PATIENT STATE PASSING GAS. SLOWLY TOWARDS POC GOALS.
--- NOTE | 2020-07-22 15:34 | NUR ---
ASSESSMENT: CM REVIEWED CHART AND SPOKE WITH PT AT THE BEDSIDE. PT IS ALERT AND ORIENTED X4. PT WAS ADMITTED WITH HERNIA REPAIR AND HAD EX LAP 07/19. PT IS CURRENTLY ON EPIDURAL PAIN PUMP. PT REPORTS THAT SHE LIVES IN A HOUSE BY HERSELF. PT REPORTS ABOUT ONE STEP TO ENTER THE HOME AND NO MORE STEPS ONCE INSIDE. PT REPORTS SHE HAS A WALKER AT HOME IF NEEDED AND ALSO HAS A SHOWER BENCH. PT REPORTS TAHT SHE HAD HH YEARS AGO BUT IS UNSURE WHAT AGENCY IT WAS. PT REPORTS SHE FEELS SHE WILL NEED HH AT DISCHARGE AND HAS NO PREFERENCE OF AGENCY. PT REPORTS THAT SHE HAS A SON THAT CAN HELP HER IF NEEDED AND HE LIVES CLOSE. PT REPORTS SHE HAS BEEN TO [facility] IN THE PAST. CM WILL CONTINUE TO FOLLOW TO ASSIST NEEDED.
[2020-07-22 16:00] VITALS: BP 120/70
--- NOTE | 2020-07-22 19:06 | PATH ---
[facility] [address] [place] [address] PATHOLOGY RPT PROCEDURE Name: LISETTE CHOE Room #: 447-P ADM IN M.R.#: [id number] Admission: 07/19/20 Date of : 52 Discharge: Report #: [id number] Path Case #: [id number] [facility] Accession Number: [id number] . 01 Material submitted: . hernia - HERNIA SAC . 01 Clinical history: . HERNIA REPAIR, ABDOMINAL WALL PRE-OP DIAGNOSIS: RECURRENT VENTRAL INCISIONAL HERNIA POST-OP DIAGNOSIS: SAME PRE-OP DIAGNOSIS . 02 Diagnosis: Hernia sac, repair: - Fibrovascular connective tissue with reactive changes compatible with a hernia sac. (IUV:pit 07/22/2020) QTP 07/22/2020 1811 Local . 02 Electronically signed: . Starr Hook MD, Pathologist NPI- [id number] . 01 Gross description: . Received in formalin labeled "Lisette Choe, hernia sac" is irregular, madrid yellow lobular portion of fibroadipose tissue with attached madrid-pink membranous soft tissue measuring 29.3 x 7.1 x 3.2 cm. Specimen is serially sectioned to reveal a lobular, madrid-yellow to madrid-pink cut surface. Retail Wireless Sales Representative sections of the specimen are submitted in cassette A1.([facility]; 07/21/2020) . . . . . . . GZA/GZA 07/21/2020 1025 Local . 02 Pathologist provided ICD-10: K43.2 . 02 CPT . 821803 Specimen Comment: A courtesy copy of this report has been sent to [phone] Specimen Comment: Report sent to Performed at: [address] [address] PATHOLOGY RPT PROCEDURE Name: LISETTE CHOE THIAGO Room #: 447-P ADM IN M.R.#: [id number] Admission: 07/19/20 Date of : 52 Discharge: Report #: [id number] Path Case #: [id number] [address] [id number] MD Avery Kwon MD Phone: [phone] Performed at: [address] [id number] MD Starr Hook MD Phone: [phone]
--- NOTE | 2020-07-22 19:56 | NUR ---
ASSUMED PT CARE AROUND 1600. PT ALERT X ORIENTED X4. ON 2L/NS/02. IV RT WRIST WITH D5 NS WITH 100ML/HR. IV ALSO ON RT UPPER ARM. PT ON CLEAR LIQUID DIET. FERNANDEZ CATHETER IN PLACE, HAS ABD BINDER, WOUND VACC AND 2 SUMA DRAINS. PAIN MEDICINE GOING THROUGH EPIDURAL AND APNEA MONITOR IN PLACE. PT AMBULATED IN THE FLOOR WITH THE NURSES AROUND 1900. CALL LIGHT IN REACH, FALL PRECAUTION IN PLACE. SHIFT REPORT GIVEN TO PATRICIA BROWN
[2020-07-22 21:25] VITALS: BP 118/71
[2020-07-23 04:10] VITALS: BP 126/78
--- NOTE | 2020-07-23 06:52 | NUR ---
PT AOX4. PT REPORTS 6/10 PAIN IN RIGHT HIP. PT CONTINUES WITH EPIDURAL INFUSION. PT ALSO RECEIVING PRN PO NORCO Q4-6HR AND PRN PO VISTARIL Q4HR. PT PT REFUSING HS MEDICATIONS DUE TO REPORTS OF RELUCTANCE PT NOT TAKING PO MEDS FOR X2 DAYS. PT TOLERATING PO INTAKE OF FLUIDS AND CLEAR LIQUID DIET WITHOUT ISSUE. PT WITHOUT NAUSEA OR EMESIS. FERNANDEZ IN PLACE, PATENT. PT AMBULATING WITH X1 ASSIST AND GAIT BELT. AMBULATED X1 AT START OF SHIFT AROUND UNIT X1 LA. RESTING IN BED OTHERWISE. FREQUENT REPOSITIONING ENCOURAGED WHILE IN BED, PT NOTED TO SLIGHTLY SHIFT INDEPENDENTLY, REFUSING REPOSITIONING ASSISTANCE. PT AWAKENED WITH 10/10 HEADACHE PAIN, REQUESTING ADMINISTRATION OF SOTALOL. PT REPORTS NEED TO HAVE TEVA DIRECTOR SOCIAL WELFARE OF SOTALOL, HOME MEDICATIONS WITH PT IN BELONGINGS. ONCALL IMPORT CUSTOMS CLEARING AGENT NOTIFIED, RECEIVED ORDERS TO MAINTAIN SCHEDULED TIMES. HOME BOTTLE OF SOTALOL LOGGED WITH PHARMACY, PLACED IN IV BIN. PT GIVEN PRN PO NORCO 4-6HR WITH NOTED EFFECT. UPON ASSESSING INPUT/OUTPUT, PT WITH 425ML OUTPUT, 800ML IV FLUIDS. BUE WITH NONPITTING EDEMA, PT CONTINUES WITH RR BETWEEN 23-27, DENIES SOB WHILE ON 2L O2 VIA NC, FLUIDS STOPPED. ONCALL IMPORT CUSTOMS CLEARING AGENT NOTIFIED, ADVISED TO STOP FLUIDS, PROVIDER TO ASSESS. UPON SHIFTCHANGE, LEVEL OF CARE POSED CONCERN DUE TO DEVIATION WITH INPUT AND OUTPUT. BATTERY TESTER FIELD NOTIFIED. ATTENDING NOTIFIED, NO ORDERS RECEIVED FROM ONCALL PROVIDER, ADVISED TO NOTIFY ATTENDING OFFICE AROUND 0800/0830. [facility]. FREQUENT MONITORING WILL CONTINUE.
[2020-07-23 08:27] VITALS: BP 119/75
--- NOTE | 2020-07-23 08:38 | NUR ---
PT GIVEN 157.2ML THROUGHOUT SHIFT. 55ML WASTED WITH KEVIN MUNGUIA. PHARMACY NOTIFIED, WITNESSED WASTE NOT REQUIRED, YELLOW FLOW SHEET TO BE OBTAINED.
--- NOTE | 2020-07-23 12:58 | NUR ---
ON-GOING ASSESSMENT: CM REVIEWED CHART. PT IS CONTINUING TO PROGRESS TOWARDS DISCHARGE GOALS. PTS DIET IS BEING ADVANCED TO FULL LIQUIDS. POSSIBLE DISCHARGE TOMORROW WITH HOME HEALTH IF PAIN IS CONTROLLED. CM NOTIFIED LIASON FROM [facility]. CM WILL CONTINUE TO FOLLOW TO ASSIST NEEDED.
--- NOTE | 2020-07-23 19:00 | NUR ---
Assumed pt care this am, had an epidural pump that was dc by OR, waste was 55 m, wiltnessed the shift mechanic do this. FC in place and was discontinued as per surgeon and to advance diet as tolerated. Pt is able to ambulate from the bed to the commode with a gait belt and walker. [address] draining serosanguinous fluid, drained by REFRIGERATION SUPERVISOR and documented in I and O as instructed. Abdominal binder in place,k c/d/i. Pt mentioned that she had called her hvac project manager Dr. Cooley and would want to make the care team aware that she had spoken to his nurse practitioner and would like to be seen here prior to dc. Care done by REFRIGERATION SUPERVISOR for this shift, awaiting documentation.
--- NOTE | 2020-07-23 20:11 | NUR ---
ASSUMED PT CARE AT 0830 THIS MORNING, PT HAS ABD SURGEIES AND HAS [address] ALONG WITH A VACUUM PUMP. PT HAS FERNANDEZ IN PLACE DUE TO A EPIDEURAL IN PLACE. PT IS A/OX4, EYES PERRLA. SKIN W/D/P, ABD TENDER X4 QUADS, WITH DRESSINGS CDI. ASSESSMENT OTHERWISE UNREMARKABLE. CR<3SEC, IV IN LEFT AC AND WRIST. CALL LIGHT AND OTHER NEEDS WITHIN REACH. FERNANDEZ IS DC'D AND REMOVED THIS AFTERNOON. PT CALLED HER GRINDER SET UP OPERATOR GEAR TOOL THIS AFTERNOON BECAUSE SHE WAS EXPERIENCING TACHY HR AT 106. GRINDER SET UP OPERATOR GEAR TOOL STATED THAT IT WAS POSSIBLE S/S HAPPENED SINCE THE INDWELLING CATH WAS REMOVED. PT IS RESTING COMFORTABLY IN RECLINER.
[2020-07-23 20:35] VITALS: BP 119/74
--- NOTE | 2020-07-24 04:07 | NUR ---
ASSESSED AT START OF SHIFT. PT A&OX4 RESTING IN RECLINER. UP WITH SBA TO THE BATHROOM. HYDROCODONE GIVENX1 FOR PAIN. IV INTACT AND SALINE LOCK. ABD DRESSING C/D/I WITH PREVENA WOUND VAC IN PLACE. 2 SUMA DRAINS INTACT WITH SEROSANGUINEOUS FLUIDS NOTED. PT HAD 2 BM'S AND REFUSED NIGHT TIME MIRALAX. REGULAR DIET. C/O OF SLIGHT GERD MILK GIVEN WITH COMPLETE RELIEF. PT 95% ON RA. SLEPT THROUGH THE SHIFT. FALL PREC IN PLACE AND CALL LIGHT AT REACH WILL CONT TO MONITOR.
[2020-07-24 05:48] LABS: ALBUMIN 2.2 g/dL (3.4-5.0); CALCIUM 7.7 mg/dL (8.5-10.1); CREATININE 0.8 mg/dL (0.6-1.0); POTASSIUM 3.9 mmol/L (3.5-5.1); TOTAL BILIRUBIN 0.3 mg/dL (0.2-1.0); TOTAL PROTEIN 7.5 g/dL (6.4-8.2)
[2020-07-24 07:56] VITALS: BP 116/71
--- NOTE | 2020-07-24 10:44 | NUR ---
Assumed pt care this am. Pt is alert & oriented x4. Pt has iv site on R AC & R wrist. Pt is up ad manjeet. Pt denies pain this am. Pt has 2 SUMA drain and SUMA drain 1 ouput was 30ml and SUMA drain 2 output was 5ml. Pt is on room air. Pt has bathroom priviledge. Pt on the chair sitting, call light within reach. Will continue to monitor.
--- NOTE | 2020-07-24 12:19 | NUR ---
Nutrition: Screen for BMI >40. POD#5 open hernia repair, lysis of adhesion, abd wall reconstruction, requiring wound vac. Diet advanced to regular yesterday, recent intake 100%. Albumin 2.2. MVI, reglan and other meds reviewed. Pt was unavailable for interview. Assess at mild nutrition risk. RD to follow up 07/26.
[2020-07-24 13:30] VITALS: BP 116/71
--- NOTE | 2020-07-24 15:22 | NUR ---
on-going assessment: CM REVIEWED CHART AND MET WITH PATIENT. PT IS DISCHARGING HOME TODAY WITH HH. CM FAXED D.C ORDERS TO [facility] AND CONFIRMED THEY RECEIVED THEM. PT REPORTS NO FURTHER NEEDS FROM CM PRIOR TO DISCHARGE.
== END 2020-07-24 17:57 | disposition home health service (06) | DRG 354 ==
LOC: 4S 06:23 → TBA 06:23 → PRE 11:50 → OR 16:13 → EDSTATUS 16:16 → 4S 16:26
PROVIDERS: Hospitalist; Nurse Practitioner; ADMIT Surgery; ATTEND Surgery
DX: K43.0 Incisional hernia with obstruction, without gangrene (principal); N39.0 Urinary tract infection, site not specified; Z68.41 Body mass index [BMI] 40.0-44.9, adult; M62.89 Other specified disorders of muscle; K66.0 Peritoneal adhesions (postprocedural) (postinfection); E66.01 Morbid (severe) obesity due to excess calories; I99.8 Other disorder of circulatory system; I10 Essential (primary) hypertension; K21.9 Gastro-esophageal reflux disease without esophagitis; M19.90 Unspecified osteoarthritis, unspecified site; I48.91 Unspecified atrial fibrillation; R39.15 Urgency of urination; D72.829 Elevated white blood cell count, unspecified; D64.9 Anemia, unspecified; E87.6 Hypokalemia; I25.10 Atherosclerotic heart disease of native coronary artery without angina pectoris; M10.9 Gout, unspecified; Z88.6 Allergy status to analgesic agent; Z94.5 Skin transplant status; Z88.8 Allergy status to other drugs, medicaments and biological substances; Z79.82 Long term (current) use of aspirin; Z79.899 Other long term (current) drug therapy; Z87.442 Personal history of urinary calculi; Z90.710 Acquired absence of both cervix and uterus
CPT/HCPCS: 10102; 50010; 50101; 50411; 51412; 51437; 56524; 56525; 56527; 56530; 57193; 57242; 62110; 62900; 70005

== ENCOUNTER 2020-08-09 11:09 | Inpatient (IN) | payer OTHER ==
[~2020-08-09] VITALS: Ht 167.6 cm; Wt 123.8 kg
[~2020-08-09 11:09] MED LIST changes: +FLONASE 0.05%50 MCG NARES; +FLONASE 0.05%50 MCG NASAL
[2020-08-09 11:11] VITALS: BP 87/35
[2020-08-09 12:07] LABS: HEMOGLOBIN 9.9 gm/dL (12.0-15.0); MCH 30.3 pg (26.0-34.0); MCV 91.7 fL (80.0-100.0); RBC 3.27 mil/uL (4.20-5.00)
[2020-08-09 12:13] LABS: CREATININE 6.9 mg/dL (0.6-1.0)
[2020-08-09 12:18] LABS: TOTAL BILIRUBIN 0.3 mg/dL (0.2-1.0); TOTAL PROTEIN 8.5 g/dL (6.4-8.2)
[2020-08-09 15:02] VITALS: BP 91/38
--- NOTE | 2020-08-09 15:03 | NUR ---
CALLED 4W AND SPOKE IGOR HENRY. INFORMED THAT HAND OFF TOOL SENT & WOULD WAIT FOR NURSE TO CALL FOR REPORT
[2020-08-09 15:37] VITALS: BP 95/32
--- NOTE | 2020-08-09 15:40 | NUR ---
ATTEMPTED TO CALL REPORT. NURSE ASSIGNED TO PATIENT IS AT LUNCH. ATTEMPTED TO GIVE REPORT TO BIOLOGICAL PHOTOGRAPHER, NOT SUCCESSFUL IN GIVING REPORT TO CHARGE.
[2020-08-09 16:03] VITALS: BP 94/43
--- NOTE | 2020-08-09 16:54 | EKG ---
[address] [email or web address] [address] ELECTROCARDIOGRAM REPORT Name: LISETTE SHELL Room #: 170-8 ADM IN M.R.#: [id number] Admission: 08/09/20 Attend Phys: Levi Cerrato MD Discharge: Date of : 52 Report #: [id number] [facility] ED Test Date: 2020-08-09 Test Time: 11:25:21 Pat Name: LISETTE SHELL Department: Room: 170 Gender: F Designated Broker: AICHA : 1950 Requested By: Yesi Silva Order Number: [id number] MD: Tad Dial Measurements Intervals Goode Rate: 62 P: 1 LA: 184 QRS: -34 QRSD: 103 T: 0 QT: 510 QTc: 518 Interpretive Statements Sinus rhythm Abnormal R-wave progression, early transition Borderline T abnormalities, inferior leads Prolonged QT interval Compared to ECG 04/16/2018 17:15:19 Prolonged QT interval now present Electronically Signed On 08-09-2020 16:54:29 CDT by Tad Dial [email or web address] <ELECTRONICALLY SIGNED> By: Tad Dial MD, [facility] 08/09/20 1654 1125 1125 Tad Dial MD, [facility] /EPI
--- NOTE | 2020-08-09 19:51 | NUR ---
Admit from ER due to weakness; transferred to room safely. On room air. Vital signs stable. On telemetry; no complains and signs of chest pain, crushing sensation and heaviness. Assisted in ADLs. On blood sugar monitoring, taken and recorded accordingly. On nothing per orem- pt informed and aware; mouth swabs given. With kirkpatrick in place- draining well; output measured and recorded accordingly. With NS at 100cc/hr, infusing well at R IJ; dressing C/D/I- rate increased to 150cc/hr as ordered. With SL at R AC. Admission assessment, history and education done. Admission forms signed. With abdominal incision- healed; dressing in place C/D/I- no bleeding noted. With [address]- dressing C/D/I- output measured and recorded accordingly. With consults to Dr Cool and Dr Swenson- answering service called and informed. Complained of pain, no PRN pain meds prescribed- ELIAS Campbell and Dr Cerrato informed. Patient diet resumed- snack box provided; no nausea, no vomiting and no abdominal pain noted. To continue monitoring patient.
[2020-08-09 23:29] VITALS: BP 146/57; BP 90/36
[2020-08-10 00:05] VITALS: BP 78/39
[2020-08-10 03:05] VITALS: BP 87/45
--- NOTE | 2020-08-10 04:50 | NUR ---
A/O X4 AND IS UP WITH ASSISTANCE. ROOM AIR. AFIB ON THE MONITOR. FERNANDEZ IN PLACE AND DRAINING YELLOW URINE. RIGHT AND LEFT SUMA DRAINS IN PLACE AND DRAINING PINK DRAINAGE WITH A FOUL ODOR. NO BM THIS SHIFT. DRSG TO ABDOMEN IS C/D/I. ABDOMINAL BINDER, SCD'S, AND FALL PRECAUTIONS IN PLACE. PT C/O PAIN. PRN PAIN MEDICATION GIVEN DIRECTED. BP LOW BUT HAS INCREASED SINCE START OF SHIFT. CALL LIGHT IS WITHIN REACH. PT CALLS OUT APPROPRIATELY.
[2020-08-10 05:00] LABS: ABSOLUTE NEUTROPHILS 7.2 thou/uL (1.4-8.2); BASOPHILS 0.3 % (0.0-2.0); EOSINOPHILS 3.5 % (0.0-3.0); HEMATOCRIT 27.2 % (37.0-47.0); HEMOGLOBIN 8.9 gm/dL (12.0-15.0); LYMPHOCYTES 9.6 % (24.0-44.0); MCH 29.8 pg (26.0-34.0); MCHC 32.6 g/dL (28.0-37.0); MCV 91.5 fL (80.0-100.0); MONOCYTES 6.5 % (1.0-8.0); PLATELET COUNT 245 thou/uL (150-400); POLYS 80.1 % (36.0-66.0); RBC 2.98 mil/uL (4.20-5.00); RDW 15.6 % (10.5-14.5)
[2020-08-10 05:11] LABS: CALCIUM 7.5 mg/dL (8.5-10.1); MAGNESIUM 2.1 mg/dL (1.8-2.4); POTASSIUM 3.8 mmol/L (3.5-5.1)
[2020-08-10 05:15] LABS: CREATININE 4.7 mg/dL (0.6-1.0)
[2020-08-10 08:20] VITALS: BP 91/53
--- NOTE | 2020-08-10 10:46 | NUR ---
Received awake on bed. Due medications given as prescribed. On telemetry; no complains and signs of chest pain, crushing sensation and heaviness. Assisted in ADLs. Vital signs stable. On room air. On regular diet- tolerating well; no nausea, no vomiting and no abdominal pain noted. On blood sugar monitoring- taken and recorded accordingly- pt informed me that she is not diabetic and no history of diabetes- verified w/ Dr Sanchez if to continue CBG monitoring- no need; will discontinue. With kirkpatrick in place- draining well; for strict monitoring of I&O. With 2 SUMA drain- RLE and LLE- dressing changed today- output measured and recorded accordingly. WIth RT 3 lumen TL IJ, NS at 150cc/hr, infusing well- with orders from Dr Cool for 2L wide open- given as prescribed. Pt seen and examined by physical therapist- able to sit out on the chair. To continue monitoring patient. Pt seen and examined by Dr Sanchez this AM, explained course of treatment and encouraged ambulation.
[2020-08-10 17:42] VITALS: BP 96/56
[2020-08-10 19:52] VITALS: BP 100/64
--- NOTE | 2020-08-11 04:36 | NUR ---
Pt. rested quietly at short intervals during the night when checked on during frequent rounds. She has c/o chronic back pain and has been medicated frequently (see emar) with some relief noted. Alberto drains intact to abdomen. Pt. does not like to be moved much because of the pain.
[2020-08-11 08:13] VITALS: BP 96/50
[2020-08-11 08:54] LABS: ALBUMIN 1.3 g/dL (3.4-5.0); PHOSPHORUS 2.3 mg/dL (2.6-4.7); POTASSIUM 3.5 mmol/L (3.5-5.1)
[2020-08-11 08:57] LABS: CREATININE 2.1 mg/dL (0.6-1.0)
--- NOTE | 2020-08-11 10:16 | NUR ---
ASSUMED PT CARE THIS AM. PT VSS, A&OX4. PATIENT ABLE TO MAKE NEEDS KNOWN. IV TO RIGHT JUGULAR PATENT AND FLUIDS INFUSING WELL. 1000 ML FLUID BOLUS GIVEN WITHOUT ISSUE THIS AM, MAINTENANCE FLUIDS INFUSING NOW. REPORTS PAIN AT A MANAGEABLE LEVEL AND NOT REQUESTING PAIN MEDICATION AT THIS TIME. DRAINS TO LEFT AND RIGHT SIDE OF ABDOMEN DRAINING. PATIENT HAS A FERNANDEZ CATHETER IN PLACE DRAINING WELL. ON ROOM AIR. FALL PRECAUTIONS ARE IN PLACE. ENCOURAGING HYDRATION AND MEALS. PATIENT IS ON TELEMETRY. TOOK MORNING MEDICATIONS WITHOUT ISSUE.
[2020-08-11 16:20] VITALS: BP 104/56
[2020-08-11 20:05] VITALS: BP 121/75
[2020-08-11 21:15] LABS: URINE BILIRUBIN NEGATIVE (Negative); URINE BLOOD TRACE (Negative); URINE CLARITY CLEAR; URINE COLOR YELLOW; URINE GLUCOSE-RANDOM* NEGATIVE (Negative); URINE KETONES NEGATIVE (Negative); URINE LEUKOCYTES-REFLEX TRACE (Negative); URINE NITRITE-REFLEX NEGATIVE (Negative); URINE PROTEIN (DIPSTICK) NEGATIVE (Negative); URINE SPECIFIC GRAVITY 1.015 (1.005-1.035); URINE UROBILINOGEN 0.2 E.U./dl (0.2-1.0)
--- NOTE | 2020-08-11 21:28 | HC ---
[facility] [place] [address] [place] [address] CONSULTATION Name: LISETTE SHELL Room #: 454-P [facility] IN M.R.#: [id number] Admission: 08/09/20 Attend Phys: Levi Cerrato MD Discharge: Date of : 52 Report #: [id number] THIS REPORT FOR: cc: STEVE SANDOVAL Physician not on staff Cher Kevin MD ~ REASON FOR CONSULTATION: Acute kidney injury. REASON FOR PRESENTATION: Weakness. HISTORY OF PRESENT ILLNESS: This is a 70-year-old with known AFib, coronary artery disease, hypertension. She had a ventral hernia repair, recurrent issue. This was done on the . The patient visited postoperatively with her surgeon and was started on Neurontin. Ever since, she was started on Neurontin. She did not feel good at all. She reported weakness. She also reported no urine output. No fever or chills. She was visited by her nursing health agent and was found to have an extremely low blood pressure and was sent for further evaluation in our hospital. On arrival, the patient was found to be in acute kidney injury with significant hypotension. PAST MEDICAL HISTORY: Extensive and includes the followin. Hypertension. 2. Atrial fibrillation. 3. Coronary artery disease. 4. History of kidney stones. 5. Hemorrhoidectomy. 6. Hysterectomy. 7. Multiple surgical repair of her hernia. 8. Thyroidectomy. 9. Repeated cardiac catheterization. SOCIAL HISTORY: No drug or alcohol abuse. FAMILY HISTORY: Hypertension. HOME MEDICATIONS: 1. Sotalol. 2. Amlodipine. 3. Lisinopril. 4. Recently started on Neurontin. ALLERGIES: Numerous including nonsteroidal anti-inflammatory medications. REVIEW OF SYSTEMS: GENERAL: No fever or chills, but significant weakness. CARDIOVASCULAR: No chest pain or palpitation. [facility] [address] [place] [address] CONSULTATION Name: LISETTE SHELL Room #: 454-P [facility] IN .R.#: [id number] Admission: 08/09/20 Attend Phys: Levi Cerrato MD Discharge: Date of : 52 Report #: [id number] PULMONARY: No cough or hemoptysis. GASTROINTESTINAL: Very poor oral intake. GENITOURINARY: No urine output. MUSCULOSKELETAL: As per the history of present illness. PHYSICAL EXAMINATION: NEUROLOGICAL: She is alert, awake, oriented. VITAL SIGNS: Temperature 37.2, blood pressure 87/45. Pulse rate 65. HEAD AND NECK: No jugular venous distention. CHEST: Clear to auscultation bilaterally. CARDIOVASCULAR: No rub. ABDOMEN: Surgical scars from recent surgery. EXTREMITIES: Lower extremities, +1 edema. LABORATORY DATA: From today, sodium 138, potassium 3.8, BUN 85, down from 102. Creatinine is down from 6.9-4.7. ASSESSMENT AND PLAN: 1. Acute kidney injury due to hypertension. 2. Continue with intravenous fluid. 3. Stop all of her blood pressure medication. 4. Septic workup initiated. 5. Stop Neurontin. 6. Renal function is already improving and I expect that her kidney function, will continue to improve with the intravenous fluid. <ELECTRONICALLY SIGNED> By: Cher Kevin MD 08/11/20 2128 [id number] Cher Kevin MD /nt
--- NOTE | 2020-08-12 04:05 | NUR ---
Pt. rested at short intervals during the night when checked on during frequent rounds. She has been up to the bedside comode times two with assist of two person and gait belt. C/o nausea and was given ivp zofran (see emar) with some relief noted. Medicated also for c/o back pain (see emar) with some relief. SUMA drains to abdomen are patent. Bed alarm is on.
[2020-08-12 06:01] LABS: HEMATOCRIT 25.4 % (37.0-47.0); HEMOGLOBIN 8.3 gm/dL (12.0-15.0); MCH 30.1 pg (26.0-34.0); MCHC 32.7 g/dL (28.0-37.0); MCV 92.1 fL (80.0-100.0); RBC 2.76 mil/uL (4.20-5.00); RDW 15.7 % (10.5-14.5); WBC 6.5 thou/uL (4.0-11.0)
[2020-08-12 06:22] LABS: ALBUMIN 1.3 g/dL (3.4-5.0); CALCIUM 6.7 mg/dL (8.5-10.1); CREATININE 1.2 mg/dL (0.6-1.0); PHOSPHORUS 1.4 mg/dL (2.5-4.9); POTASSIUM 3.5 mmol/L (3.5-5.1)
[2020-08-12 07:44] VITALS: BP 118/77
--- NOTE | 2020-08-12 14:00 | NUR ---
PT ADMITTED RELATED TO ARF. CM REVIEWED CHART AND SPOKE WITH CARE TEAM. CM MET WITH PT AT BEDSIDE THIS DAY. PT APPEARED TO BE A&O X4. CM ROLE INTORDUCED. PT INDICATED SHE LIVES ALONE IN A HOUSE WITH 2 STEPS TO ENTER AND STEPS TO THE BASEMENT. 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 PT HAS A FWW AND A SHOWER BENCH FOR HOME USE. 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 PT HAD BEEN TO [facility] IN PAST. CM INDICATED TO PT THAT CARE TEAM INDICATED THAT SHE MAY BENEFIT FROM POST ACUTE CARE STAY. PT INDICATED SHE WOULDN'T BE RECEPTIVE TO SKILLED BUT THAT SHE MIGHT BE RECEPTIVE TO ACUTE REHAB. CONSULT ENTERED. AWAITING CONSULT. CM FOLLOWING REGARDING DC PLANNING.
[2020-08-12 16:16] VITALS: BP 116/65
--- NOTE | 2020-08-12 16:52 | NUR ---
ASSUMED CARE AT 0700. PATIENT SLOWLY PROGRESSING TOWARDS THE PLAN OF CARE HOWEVER STILL COMPLAINS OF NAUSEA AND WEAKNESS WHEN WALKING.
[2020-08-12 21:16] VITALS: BP 125/75
--- NOTE | 2020-08-13 04:36 | NUR ---
PATIENT HAS ABD DRESSING ON THE INCISION IS C/D/I. PATIENT HAS TWO SUMA WITH SEROSANGUINOUS DRAINAGE. PATIENT IS ABLE TO TRANSFER WITH MINIMUM ASSISTANCE FROM CHAIR TO BED. PATIENT NEEDS MIMUM ASSISTANCE WITH ADL, BED MOBILITY, TRANFER AND TOILETING.PATIENT DENIED PAINOR DISCOMFORT. FALL PRECAUTION IN PLACE. PATIENT IN BED ASLEEP AT THIS TIME BREATHING REGULAR AND UNLABOURED.
--- NOTE | 2020-08-13 08:59 | NUR ---
Note Given: Y Facility List Provided:Y Facility Yenni: None chosen at this time Ivory Wisdom NP discussed BPCI with this pt 08/13/2020
[2020-08-13 09:00] VITALS: BP 124/71
--- NOTE | 2020-08-13 09:19 | NUR ---
RD consult received. Pt with class III extreme obesity, BMI 44. Admit with ARF due to poor intake. Recent hx hernia repair last month. Visit with pt this am, multiple complaints about her stay- not liking breakfast, states no to assess her yet. Offered apoligies and asked what we can do for her to improve stay. Pt continued to voice anger and "wants to go home". Provided pt with new menu. Wt has been stable, intake poor to fair 10-70%. Renal is signing off so would recommend to discontinue K+ restriction as renal function improving with hydration and K+ is within normal limits. ASSISTANT PROFESSOR OF THEATER coming in to check pts vitals as RD leaving. Low nutrition risk
--- NOTE | 2020-08-13 09:25 | NUR ---
Pt has voiced multiple complaints regarding overall care. Please followup. From dietary standpoint, have provided pt with new menu and would recommend discontinue K+ restriction since renal function improved and Renal provider is signing off.
[2020-08-13 11:10] LABS: HEMATOCRIT 26.2 % (37.0-47.0); HEMOGLOBIN 8.6 gm/dL (12.0-15.0); MCH 29.7 pg (26.0-34.0); MCHC 32.7 g/dL (28.0-37.0); MCV 90.7 fL (80.0-100.0); RBC 2.89 mil/uL (4.20-5.00); RDW 15.7 % (10.5-14.5); WBC 6.5 thou/uL (4.0-11.0)
[2020-08-13 11:36] LABS: ALBUMIN 1.5 g/dL (3.4-5.0); CALCIUM 6.8 mg/dL (8.5-10.1); CREATININE 0.8 mg/dL (0.6-1.0); MAGNESIUM 1.2 mg/dL (1.8-2.4); PHOSPHORUS 0.9 mg/dL (2.5-4.9); POTASSIUM 3.5 mmol/L (3.5-5.1); TOTAL BILIRUBIN 0.3 mg/dL (0.2-1.0); TOTAL PROTEIN 6.9 g/dL (6.4-8.2)
[2020-08-13] MEDS ORDERED: MIRALAX17 GM PO (13:50)
[2020-08-13] MEDS ORDERED: CALCIUM 500 +1 EAC5 PO (13:50)
[2020-08-13] MEDS ORDERED: AMOX TR-K CLV1 EAC4 PO (13:50)
[2020-08-13] MEDS ORDERED: TRAMADOL 50 MG50 MG PO (13:50)
[2020-08-13] MEDS ORDERED: PHOSPHA 250 NE250 MG PO (13:50)
--- NOTE | 2020-08-13 14:36 | NUR ---
ASSUMED PT CARE THIS AM. PT VSS, A&OX4. PATIENT ABLE TO MAKE NEEDS KNOWN. FERNANDEZ CATHETER DC'D PER PHYSICIAN ORDER. SUMA DRAIN TO LEFT AND RIGHT ABDOMEN. WITH A MIDLINE INCISION. ON ROOM AIR. REPORTS NO PAIN. TOOK MEDS WHOLE WITHOUT ISSUE. TRIPLE LUMEN IJ WITH FLUIDS INFUSING WELL. FALL PRECAUTIONS ARE IN PLACE.
--- NOTE | 2020-08-13 14:40 | NUR ---
CARE TEAM INDICATED THAT PT IS MEDICALLY STABLE TO DC TO 5N THIS DAY. PT AND SON ARE AGREEABLE. NURSE TO CALL REPORT TO UNIT . NO OTHER CM INTERVENTION INDICATED. CASE CLOSED.
[2020-08-13] MEDS ORDERED: TRIPLE FLEX CA1 EACH PO (19:54)
[2020-08-14] MEDS ORDERED: NORVASC5 MG PO (11:49)
[2020-08-14] MEDS ORDERED: HYDROCHLOROTHIA25 M1 PO (11:49)
[2020-08-21] MEDS ORDERED: CALCIUM 500 +1 EAC5 PO (08:25)
[2020-08-21] MEDS ORDERED: MIRALAX17 GM PO (08:25)
[2020-08-21] MEDS ORDERED: BACTRIM DS TAB1 EACH PO (08:25)
== END 2020-08-13 17:19 | DRG 682 ==
LOC: ER 11:09 → EROBS 13:57 → 4W 13:57
PROVIDERS: Hospitalist; Internal Medicine; Nurse Practitioner; Student in an Organized Health Care Education/Training Program; ADMIT Hospitalist; ATTEND Hospitalist
PROC: 02H633Z Insertion of Infusion Device into Right Atrium, Percutaneous Approach (ICD-10-PCS; principal; 2020-08-09)
DX: N17.0 Acute kidney failure with tubular necrosis (principal); J18.9 Pneumonia, unspecified organism; G92 Toxic encephalopathy; K43.0 Incisional hernia with obstruction, without gangrene; N39.0 Urinary tract infection, site not specified; J98.11 Atelectasis; Z68.41 Body mass index [BMI] 40.0-44.9, adult; E86.0 Dehydration; I95.89 Other hypotension; Z20.822 Contact with and (suspected) exposure to COVID-19; M10.9 Gout, unspecified; K21.9 Gastro-esophageal reflux disease without esophagitis; M19.90 Unspecified osteoarthritis, unspecified site; I48.91 Unspecified atrial fibrillation; I25.10 Atherosclerotic heart disease of native coronary artery without angina pectoris; I10 Essential (primary) hypertension; E89.0 Postprocedural hypothyroidism; K52.9 Noninfective gastroenteritis and colitis, unspecified; I12.9 Hypertensive chronic kidney disease with stage 1 through stage 4 chronic kidney disease, or unspecified chronic kidney disease; N18.9 Chronic kidney disease, unspecified; R53.81 Other malaise; E66.01 Morbid (severe) obesity due to excess calories; G47.33 Obstructive sleep apnea (adult) (pediatric); Z87.442 Personal history of urinary calculi; Z90.710 Acquired absence of both cervix and uterus; Z88.8 Allergy status to other drugs, medicaments and biological substances; Z88.6 Allergy status to analgesic agent; Z91.02 Food additives allergy status; Z82.49 Family history of ischemic heart disease and other diseases of the circulatory system
CPT/HCPCS: 10045

== ENCOUNTER 2020-08-29 16:42 | Inpatient (IN) | payer OTHER ==
[~2020-08-29] VITALS: Ht 167.6 cm; Wt 114.3 kg
[~2020-08-29 16:42] MED LIST changes: -NYSTATIN1 EA10 TOP
[2020-08-29 17:00] VITALS: BP 124/68
[2020-08-29 17:47] LABS: BASOPHILS 0.6 % (0.0-2.0); EOSINOPHILS 2.3 % (0.0-3.0); HEMATOCRIT 30.3 % (37.0-47.0); HEMOGLOBIN 10.3 gm/dL (12.0-15.0); LYMPHOCYTES 15.3 % (24.0-44.0); MCH 30.3 pg (26.0-34.0); MCV 89.1 fL (80.0-100.0); MONOCYTES 6.7 % (1.0-8.0); PLATELET COUNT 354 thou/uL (150-400); POLYS 75.1 % (36.0-66.0); RDW 16.3 % (10.5-14.5); WBC 10.6 thou/uL (4.0-11.0)
[2020-08-29 18:04] LABS: CREATININE 1.2 mg/dL (0.6-1.0); POTASSIUM 4.2 mmol/L (3.5-5.1)
[2020-08-29 18:08] LABS: ALBUMIN 2.3 g/dL (3.4-5.0); TOTAL BILIRUBIN 0.2 mg/dL (0.2-1.0); TOTAL PROTEIN 8.4 g/dL (6.4-8.2)
[2020-08-30] VITALS (9 sets, daily range): BP systolic 99–140; BP diastolic 54–73
--- NOTE | 2020-08-30 00:50 | NUR ---
PT COMPLAINING THAT SHE HAS NOT BEEN FED, WAS TOLD SHE WOULD BE ABLE TO EAT LATER. NOW SHE IS NPO FOR SURGERY , EXPLAINED THIS , WAS ANGRY. APOLOGIZED. REPEATED EXPLAINATION AGAIN, TAKEN TO FLOOR
[2020-08-30 05:33] LABS: HEMATOCRIT 29.9 % (37.0-47.0); HEMOGLOBIN 9.5 gm/dL (12.0-15.0); MCHC 31.8 g/dL (28.0-37.0); MCV 91.2 fL (80.0-100.0); RBC 3.28 mil/uL (4.20-5.00); RDW 16.9 % (10.5-14.5); WBC 8.1 thou/uL (4.0-11.0)
--- NOTE | 2020-08-30 05:37 | NUR ---
ASSUMED CARE OF PATIENT FROM ER. ADMISSION COMPLETE. PATIENT VERBALIZED UNDERSTANDING FOR NPO STATUS. HOME MEDICATION SOTALOL TAKEN TO PHARMACY. PATIENT SLEEPING THROUGH THE NIGHT. CALLS OUT APPROPRIATELY. POC GOALS ESTABLISHED.
[2020-08-30 05:51] LABS: CALCIUM 8.4 mg/dL (8.5-10.1); POTASSIUM 3.9 mmol/L (3.5-5.1)
--- NOTE | 2020-08-30 14:53 | NUR ---
PT ADMITTED RELATED TO ABDOMINAL WALL SEROMA, WOUND DRAINAGE. CM REVIEWED CHART AND SPOKE WITH CARE TEAM. CM MET WITH PT AT BEDSIDE THIS DAY. PT IS FAMILIAR TO CM FROM PREVIOUS ADMISSION. PT HAD BEEN ON 5N AND DC'S HOME 07/20. PT RESIDES IN A HOUSE ALONE WITH 2 STEPS TO ENTER AND STEPS TO THE BASEMENT INSIDE. 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 CM CALLED AND NOTIFIED THEM OF ADMISSION. CM FAXED CLINICAL. PT HAD DRAIN PLACED IN IR THIS AFTERNOON. POSSIBLE DC HOME TOMORROW WITH RESUMPTION OF HH WITH [facility]. [facility]: P: F:
--- NOTE | 2020-08-30 19:41 | NUR ---
Assumed pt care this am, VS stable. flid draining from both open drain sites, more profuse on the left side. Drain was placed by IR this pm, drained 950 cc in the fist 2 hours. Stayed on the recliner in the pm. Diet and medications are well tolerated. Mid line scar is intact, right drain site covered with tegaderm. {OC followed with no signs or veralizations of distress noted. Endorsed to the night nurse.
[2020-08-31 04:51] LABS: HEMATOCRIT 28.5 % (37.0-47.0); HEMOGLOBIN 9.2 gm/dL (12.0-15.0); MCH 29.4 pg (26.0-34.0); MCHC 32.3 g/dL (28.0-37.0); MCV 91.1 fL (80.0-100.0); RBC 3.13 mil/uL (4.20-5.00); RDW 16.6 % (10.5-14.5); WBC 7.3 thou/uL (4.0-11.0)
[2020-08-31 05:00] LABS: CALCIUM 7.7 mg/dL (8.5-10.1); CREATININE 0.8 mg/dL (0.6-1.0); POTASSIUM 3.8 mmol/L (3.5-5.1)
--- NOTE | 2020-08-31 05:28 | NUR ---
ASSUMED PT CARE AT AROUND 1915 HRS. PT SITTING IN CHAIR. SHE DENIES PAIN. SHE JUST HAS SOME ABDOMINAL SORENESS ESTHER WHEN YOU LIFT PANNUS TO ASSESS. NOT MUCH OUTPUT FROM DRAIN <500. UP WITH ASSIST X 1.ON ROOM AIR.
[2020-08-31 08:00] VITALS: BP 120/57
--- NOTE | 2020-08-31 12:57 | NUR ---
Assumed pt care this am, VS stable. Abdominal fluid still draining in bag, changed to hemovac. Redness and irritation ubder the pannus and martha area. Pain was noted on the skin surrounding the appliance for the drain. POC followed with nos sigsn or verbalizations of distress noted.
[2020-08-31 13:15] VITALS: BP 120/57
[2020-08-31] MEDS ORDERED: NYSTATIN1 EA10 TOP (16:08)
== END 2020-08-31 16:50 | disposition home health service (06) | DRG 920 ==
LOC: ER 16:42 → 4W 19:59 → EROBS 19:59 → 4W 08-30 00:41
PROVIDERS: Nurse Practitioner Family; Physician Assistant; ADMIT Hospitalist; ATTEND Hospitalist
PROC: 0W9F30Z Drainage of Abdominal Wall with Drainage Device, Percutaneous Approach (ICD-10-PCS; principal; 2020-08-30)
DX: K91.873 Postprocedural seroma of a digestive system organ or structure following other procedure (principal); Z68.41 Body mass index [BMI] 40.0-44.9, adult; M10.9 Gout, unspecified; I10 Essential (primary) hypertension; K21.9 Gastro-esophageal reflux disease without esophagitis; M19.90 Unspecified osteoarthritis, unspecified site; E66.01 Morbid (severe) obesity due to excess calories; E89.0 Postprocedural hypothyroidism; Z20.822 Contact with and (suspected) exposure to COVID-19; Y82.8 Other medical devices associated with adverse incidents; I48.91 Unspecified atrial fibrillation; Y83.8 Other surgical procedures as the cause of abnormal reaction of the patient, or of later complication, without mention of misadventure at the time of the procedure; I25.10 Atherosclerotic heart disease of native coronary artery without angina pectoris; Z87.442 Personal history of urinary calculi; Z88.6 Allergy status to analgesic agent; Z88.8 Allergy status to other drugs, medicaments and biological substances; Z98.49 Cataract extraction status, unspecified eye; Z90.49 Acquired absence of other specified parts of digestive tract; Z90.710 Acquired absence of both cervix and uterus
CPT/HCPCS: 10040

== ENCOUNTER → 2020-08-29 | Outpatient (CLI) | payer OTHER ==
[~2020-08-29] MED LIST changes: +AMOX TR-K CLV1 EAC4 PO; +BACTRIM DS TAB1 EACH PO; +MIRALAX17 GM PO; +NYSTATIN1 EA10 TOP; +PHOSPHA 250 NE250 MG PO
== END ==
LOC: HYPER 14:54
PROVIDERS: ATTEND Emergency Medicine
DX: T81.31XA Disruption of external operation (surgical) wound, not elsewhere classified, initial encounter (principal); L98.492 Non-pressure chronic ulcer of skin of other sites with fat layer exposed; E11.622 Type 2 diabetes mellitus with other skin ulcer; E66.01 Morbid (severe) obesity due to excess calories; E07.89 Other specified disorders of thyroid; E78.5 Hyperlipidemia, unspecified; I10 Essential (primary) hypertension; I25.10 Atherosclerotic heart disease of native coronary artery without angina pectoris; K21.9 Gastro-esophageal reflux disease without esophagitis; M19.90 Unspecified osteoarthritis, unspecified site; M10.9 Gout, unspecified; M81.0 Age-related osteoporosis without current pathological fracture; F41.9 Anxiety disorder, unspecified; Z90.710 Acquired absence of both cervix and uterus; Z68.41 Body mass index [BMI] 40.0-44.9, adult; Y92.238 Other place in hospital as the place of occurrence of the external cause; Y83.8 Other surgical procedures as the cause of abnormal reaction of the patient, or of later complication, without mention of misadventure at the time of the procedure

== ENCOUNTER → 2020-09-17 | Outpatient (CLI) | payer OTHER ==
[~2020-09-17] MED LIST changes: +NYSTATIN1 EA10 TOP
== END ==
LOC: HYPER 09:12
PROVIDERS: ATTEND Emergency Medicine
DX: T81.31XD Disruption of external operation (surgical) wound, not elsewhere classified, subsequent encounter (principal); E11.622 Type 2 diabetes mellitus with other skin ulcer; L98.492 Non-pressure chronic ulcer of skin of other sites with fat layer exposed; E66.01 Morbid (severe) obesity due to excess calories; E07.89 Other specified disorders of thyroid; E78.5 Hyperlipidemia, unspecified; I10 Essential (primary) hypertension; I25.10 Atherosclerotic heart disease of native coronary artery without angina pectoris; K21.9 Gastro-esophageal reflux disease without esophagitis; M19.90 Unspecified osteoarthritis, unspecified site; M10.9 Gout, unspecified; M81.0 Age-related osteoporosis without current pathological fracture; F41.9 Anxiety disorder, unspecified; Z90.710 Acquired absence of both cervix and uterus; Z68.41 Body mass index [BMI] 40.0-44.9, adult; Y83.8 Other surgical procedures as the cause of abnormal reaction of the patient, or of later complication, without mention of misadventure at the time of the procedure

== ENCOUNTER 2020-09-19 13:13 | Inpatient (IN) | payer OTHER ==
[~2020-09-19] VITALS: Ht 167.6 cm; Wt 120.7 kg
[2020-09-19 14:10] VITALS: BP 124/99
[2020-09-19 15:35] VITALS: BP 149/83
[2020-09-19 19:29] LABS: HEMATOCRIT 28.6 % (37.0-47.0); HEMOGLOBIN 8.9 gm/dL (12.0-15.0); MCH 27.5 pg (26.0-34.0); MCHC 31.2 g/dL (28.0-37.0); MCV 88.1 fL (80.0-100.0); RBC 3.25 mil/uL (4.20-5.00); RDW 16.9 % (10.5-14.5); WBC 7.1 thou/uL (4.0-11.0)
--- NOTE | 2020-09-19 19:41 | NUR ---
PT ADMITTED FROM HOME ABOUT 1400PM FOR ABD WOUND INFECTION, PT IS A&O X4, RN HAS CALLED ADMITTED DR AND NEW ORDER RECEIVED, ID DR AND WOUND DR HAVE CONSULTS, PT'S VS ARE STABLE, PT DENIES PAIN AND N/V AT DAY SHIFT.
[2020-09-19 19:42] LABS: CALCIUM 8.3 mg/dL (8.5-10.1); CREATININE 0.8 mg/dL (0.6-1.0); MAGNESIUM 1.9 mg/dL (1.8-2.4); POTASSIUM 3.7 mmol/L (3.5-5.1); TOTAL BILIRUBIN 0.2 mg/dL (0.2-1.0); TOTAL PROTEIN 7.2 g/dL (6.4-8.2)
[2020-09-19 20:55] VITALS: BP 130/84
[2020-09-20 03:30] VITALS: BP 123/72
--- NOTE | 2020-09-20 04:03 | NUR ---
Patient making slow progress towards outcome goals, vital signs and rhythm stable. Gait steady, low fall risks. Calls out appropriately for needs. Wound care wet to dry only with saline as patient states she is allergic to bleach. Planned wound vac placement per wound care.
[2020-09-20 04:17] LABS: HEMOGLOBIN 8.4 gm/dL (12.0-15.0); MCH 28.1 pg (26.0-34.0); MCHC 32.4 g/dL (28.0-37.0); RBC 2.99 mil/uL (4.20-5.00); RDW 16.9 % (10.5-14.5); WBC 6.1 thou/uL (4.0-11.0)
[2020-09-20 04:30] LABS: CREATININE 0.8 mg/dL (0.6-1.0); MAGNESIUM 1.8 mg/dL (1.8-2.4); POTASSIUM 3.7 mmol/L (3.5-5.1)
[2020-09-20 07:22] VITALS: BP 126/73
[2020-09-20] MEDS ORDERED: NYSTATIN1 EA10 TOP (10:34)
[2020-09-20] MEDS ORDERED: CICLOPIROX15 GM TOP (10:35)
[2020-09-20] MEDS ORDERED: NORVASC5 MG PO (10:38)
--- NOTE | 2020-09-20 13:52 | NUR ---
INITIAL ASSESSMENT: JAXON reviewed chart and spoke with nursing and attending physician. Pt was admitted from home due to abdominal wound infection. Pt is on IV abx. ID and wound care consulted. Pt was recently discharged home on 08/30/2020 with [facility]. Pt was on 5N during July of 2020. Pt is in the BPCI program. JAXON met with pt at bedside. Introduced role of SW. Pt is alert/orientated x 4. Pt reports she lives at home alone. 2 steps to enter and steps down to the basement. Pt does not use any DME. Pt is currently on service with [facility]. Pt's PCP is Dr. Alfonso Basilio. Plan is for pt to discharge back home and resume services. Unsure of discharge timeframe. JAXON spoke with [facility] to notify of pt's admission. is able to accept pt back on service when discharged. However, they would not be able to start care until Wednesday, 09/25. H&P and discharge orders/summary will need to be faxed when pt is discharged. JAXON is following to assist as needed with discharge planning. [facility]--
[2020-09-20 15:28] VITALS: BP 124/76
--- NOTE | 2020-09-20 18:16 | NUR ---
RN ASSUMED PT'S CARE AT O700AM, PT IS A&OX4, PT 'S VS ARE STABLE, PT HAS HOSPITAL DR , ID DR AND WOUND DR TO SEE HER, NEW IV ABX HAS STARTED , APPLY WOUND VAC -125MMHG TO ABD MIDLINE WOUND , PT IS TOLERATED WOUND VAC, PT DENIES PAIN AND N/V AT THIS TIME, PT GETS UP TO WALK IN HALLWAY WITH PT.
[2020-09-20 20:07] VITALS: BP 148/80
--- NOTE | 2020-09-20 22:32 | NUR ---
PT ALERT AND ORIENTED X4. VSS AFEBRILE. NO C/O PAIN. ABDOMINAL WOUND VAC INTACT DRAINING SEROSANGINOUS DRAINAGE. BED DOWN . CALL LIGHT IN REACN. NYSTATIN APPLIED TO ABDOMINAL FOLD AND JETT AREA. ABX OINTMENT APPLIED TO R GREAT TOE NAIL. BED DOWN. CALL LIGHT IN REACH. BED ALARM IS ON.
[2020-09-21 04:46] VITALS: BP 141/57
--- NOTE | 2020-09-21 04:52 | NUR ---
PT PROGRESSING TOWARDS D/C GOALS. VSS AFEBRILE. NO S/S DISTRESS. NO C/O PAIN. WOUND VAC INTACT TO ABDOMINAL DRESSING.
[2020-09-21 05:12] VITALS: BP 136/72
[2020-09-21 07:16] VITALS: BP 125/72
[2020-09-21 07:55] LABS: HEMATOCRIT 26.2 % (37.0-47.0); HEMOGLOBIN 8.4 gm/dL (12.0-15.0); MCH 27.9 pg (26.0-34.0); MCV 87.2 fL (80.0-100.0); RBC 3.01 mil/uL (4.20-5.00); RDW 17.2 % (10.5-14.5); WBC 5.6 thou/uL (4.0-11.0)
[2020-09-21 08:04] LABS: CALCIUM 7.9 mg/dL (8.5-10.1); CREATININE 0.9 mg/dL (0.6-1.0); MAGNESIUM 1.8 mg/dL (1.8-2.4); POTASSIUM 4.2 mmol/L (3.5-5.1)
[2020-09-21 15:25] VITALS: BP 124/70
[2020-09-21 20:37] VITALS: BP 134/64
--- NOTE | 2020-09-21 22:06 | NUR ---
PT IS ALERT AND ORIENTED X4. VSS AFEBRILE. NO C/O PAIN. WOUND VAC INTACT DRAINING SMALL AMTS SEROSANGINOUS DRAINAGE. IV RESTARTED RIGHT ARM. FOR ABX. PT C/O CONTIPATION. REFUSED MIRALAX COLACE ORDERED. BED DOWN CALL LIGHT IN REACH. BED ALARM IS ON. NYSTATIN TO SLIN FOLDS.
[2020-09-22 04:38] VITALS: BP 124/56
[2020-09-22 05:35] LABS: HEMOGLOBIN 8.7 gm/dL (12.0-15.0); MCH 28.4 pg (26.0-34.0); MCHC 32.3 g/dL (28.0-37.0); RBC 3.07 mil/uL (4.20-5.00); WBC 6.4 thou/uL (4.0-11.0)
--- NOTE | 2020-09-22 05:37 | HC ---
[facility] [address] CONSULTATION Name: LISETTE SHELL Room #: 359-P ADM IN M.R.#: [id number] Admission: 09/19/20 Attend Phys: Valeria Dominguez Discharge: Date of : 52 Report #: [id number] THIS REPORT FOR: cc: STEVE SANDOVAL Physician not on staff Jorge Salazar MD ~ DOC #: [id number] Jorge Salazar MD DATE OF SERVICE: 09/20/2020 INFECTIOUS DISEASE CONSULTATION ATTENDING PHYSICIAN: Dr. Dominguez REASON FOR EVALUATION: Abdominal wall wound infection. HISTORY OF PRESENT ILLNESS: Chart reviewed. The patient examined. This is a 70-year-old woman with extensive medical history, has known vasculopathy, hypertension, underwent abdominal hernia repair I believe in June of this year and has had several complications including requiring surgery 6 times due to complicated infection. Notes also has been hospitalized for adverse drug effects as well. Apparently, she has been followed by the wound care center. Had a drain in place, which was removed earlier this week, increasing pain in particular on the right side with persistent drainage. Due to concern about abdominal wall infection, was referred for evaluations and subsequent admission. CT of the abdomen and pelvis confirmed suspicion with persistent fluid collection, although it was smaller, associated surrounding inflammation as well. Did undergo bedside debridement and now has a wound VAC in place. It is notable she does have a retained mesh as well that ____ to be removed. She had previous cultures dating early August, one showed polymicrobial growth including klebsiella, enterococcus, Streptococcus mitis, corynebacterium, prevotella and also culture with klebsiella and enterococcus. She was empirically placed on vancomycin. She is not overtly toxic. She denies significant systemic illness in terms of fevers, chills. Appetite has been satisfactory. ALLERGIES: LISTED TO NONSTEROIDALS, MORPHINE, ATENOLOL, ____, SOTALOL, GABAPENTIN, ROSUVASTATIN. CURRENT MEDICATIONS: Include vancomycin, heparin, p.r.n. analgesics. PAST MEDICAL HISTORY: As noted above, history of hypertension, chronic anemia, gout, reflux, arthritis, atrial fibrillation, coronary artery disease, renal lithiasis, recurrent urinary tract infections, previous appendicitis. PAST SURGICAL HISTORY: Appendectomy, cholecystectomy, multiple abdominal wall hernias with repair, morbid obesity. [address] [address] CONSULTATION Name: LISETTE SHELL Room #: 359-P [facility] IN M.R.#: [id number] Admission: 09/19/20 Attend Phys: Valeria Dominguez Discharge: Date of : 52 Report #: [id number] SOCIAL HISTORY: Nonsmoker. Occasional ethanol. No illicit drug use. FAMILY HISTORY: Noncontributory. REVIEW OF SYSTEMS: Otherwise unremarkable. PHYSICAL EXAMINATION: GENERAL: She appears chronically ill, undernourished. She is morbidly obese. She is lucid at this point. VITAL SIGNS: Temperature 98.2, pulse 72, respirations 18, blood pressure is 126/73. SKIN: Warm, dry, no rashes. HEENT: Otherwise unremarkable. Normocephalic. Extraocular muscles intact. NECK: Supple. LUNGS: Diminished breath sounds. HEART: Irregular, do not appreciate a murmur. ABDOMEN: Large pannus. Has got a wound VAC in place in mid portion inferior to the umbilicus. There is induration more so on the right lower quadrant, is tender to palpation. Surface inflammation signs are ____ mild to moderate. GENITOURINARY AND RECTAL: Deferred. LABORATORY DATA: CT abdomen and pelvis as described above. Subcutaneous fluid collection measures 15 x 5 x 13 cm, gas within the fluid collection, enhancement of the wall of the fluid collection, bibasilar atelectasis and scarring. Blood cultures are sterile thus far. ____. CBC: White count 6.1, H and H 8.4 and 26.0, platelets of 251. Electrolytes: Sodium 140, potassium 3.7, chloride 106, bicarbonate 27, anion gap of 7, BUN and creatinine 15 and 0.8. LFTs unremarkable. Albumin of ____, total protein 7.2. ASSESSMENT AND PLAN: Abdominal wall skin and soft tissue infection with fluid collection, likely abscess post-bedside debridement. The previous cultures suggest polymicrobial etiology including mixed aerobes and anaerobes. Vancomycin should cover the gram positives fairly well. We will add second agent to cover some gram negatives as well as anaerobes. Continue wound care as prescribed. We will add incentive spirometry. She remains tenuous. We will discuss with surgery. It is difficult to ascertain, likely issue of a complicating process of foreign body infection with retained mesh that she is aware of. MD BENJA Cisse/GALE/JUAN [address] [address] CONSULTATION Name: LISETTE SHELL Room #: 359-P [facility] IN M.R.#: [id number] Admission: 09/19/20 Attend Phys: Valeria Dominguez Discharge: Date of : 52 Report #: [id number] <ELECTRONICALLY SIGNED> By: Jorge Salazar MD 09/22/20 [id number] [id number] Jorge Salazar MD /nt
--- NOTE | 2020-09-22 06:03 | NUR ---
PT PROGRESSING TOWARDS D/C GOALS. VSS AFEBRILE. NO C/O PAIN TONIGHT, WOUND VAC INTACT. NO S/S DISTRESS.
[2020-09-22 06:22] LABS: CALCIUM 8.2 mg/dL (8.5-10.1); CREATININE 0.9 mg/dL (0.6-1.0); POTASSIUM 4.1 mmol/L (3.5-5.1)
[2020-09-22 07:53] VITALS: BP 121/63
[2020-09-22 08:50] LABS: URINE BILIRUBIN NEGATIVE (Negative); URINE BLOOD NEGATIVE (Negative); URINE CLARITY CLEAR; URINE COLOR YELLOW; URINE GLUCOSE-RANDOM* NEGATIVE (Negative); URINE KETONES NEGATIVE (Negative); URINE LEUKOCYTES-REFLEX NEGATIVE (Negative); URINE NITRITE-REFLEX NEGATIVE (Negative); URINE PROTEIN (DIPSTICK) NEGATIVE (Negative); URINE UROBILINOGEN 0.2 E.U./dl (0.2-1.0)
--- NOTE | 2020-09-22 17:23 | NUR ---
PT IS A&OX4, PT IS CONTINUNG IV ABX AND WOUND CARE , PT'S ABD WOUND VAC IS WORKING AT -125MMHG, PT IS TOLERATED ABD WOUND PIAN , PT GETS TO TO WALK IN HALLWAY WITH RN ABOUT 15MIN, PT'S VS ARE STABLE, PT DENIES SOB AND N/V BY THIS TIME.
[2020-09-22 19:55] VITALS: BP 117/67
--- NOTE | 2020-09-22 21:32 | NUR ---
PT ALERT AND ORIENTED X4 VSS. AFEBRILE. NO C/O PAIN. WOUND VAC INTACT TO A ABDOMINAL WOUND. SMALL AMTS SEROSANGINOJUS DRAINAGE NOTED. NYSTATIN APPLIED TO ABDOMINAL FOLDS AND PERIAREA. PT RESTING QUIETLY . NO S/S DISTRESS.
[2020-09-23 04:50] VITALS: BP 138/76
--- NOTE | 2020-09-23 05:20 | NUR ---
PT ALERT AND ORIENTED X4. VSS AFEBRILE. UNLABORED ON RA. WOUND VAC INTACT AT 125MMHG DRAINING MODERATE AMTS OF SEROSANGINOUS DRAINAGE. PT DENIES PAIN. IV ABX INFUSING R FA. PROGRESSING TOWARDS D/C GOALS.
[2020-09-23 05:22] LABS: HEMATOCRIT 27.4 % (37.0-47.0); HEMOGLOBIN 8.7 gm/dL (12.0-15.0); MCH 28.1 pg (26.0-34.0); MCHC 31.8 g/dL (28.0-37.0); MCV 88.2 fL (80.0-100.0); RBC 3.11 mil/uL (4.20-5.00); WBC 6.6 thou/uL (4.0-11.0)
[2020-09-23 05:34] LABS: CALCIUM 8.4 mg/dL (8.5-10.1); CREATININE 0.9 mg/dL (0.6-1.0); POTASSIUM 4.4 mmol/L (3.5-5.1)
[2020-09-23 07:15] VITALS: BP 128/67
[2020-09-23 15:38] VITALS: BP 117/82
[2020-09-23 21:07] VITALS: BP 111/66
[2020-09-24 03:29] VITALS: BP 106/56
--- NOTE | 2020-09-24 06:15 | NUR ---
PT WORRIED ABOUT HER BP, SHOWED HER PM/AM VITALS, VSS OVERNIGHT. FOLLOWING POC WITH IV ANTIBIOTICS. PT UP WITH SBA. HOURLY ROUNDING.
[2020-09-24 07:30] VITALS: BP 121/75
--- NOTE | 2020-09-24 13:04 | NUR ---
WOUND CARE F/U; THE PATIENT HAS AN ABDOMINAL WOUND HAS A 2 X 2 WOUND INTO THE ABDOMINAL CAVITY. THE COMPLETE DEPTH IS APPROX 10 CM. THE WOUND IS TENDER. THE DRAINAGE IS CLEAR TO SEROSANGINOUS. THE PERWOUND IS TEMPATURE IS WNL. THE PERIWOUND IS DENUDED. RECOMMENDATIONS; -APPLY WOUND VAC 125MMHG, CONTINUOUS. RN PRESENT.
--- NOTE | 2020-09-24 13:19 | NUR ---
SW reviewed chart and spoke with nursing and attending physician. Pt is on IV abx and has wound vac in place. Surgery consulted today. Pt is currently on service with [facility]. JAXON is following to assist as needed with discharge planning.
[2020-09-24 15:19] VITALS: BP 114/59
[2020-09-24 19:55] VITALS: BP 105/62
[2020-09-24] MEDS ORDERED: ALLOPURINOL 30300 M1 PO (20:39)
--- NOTE | 2020-09-25 00:45 | NUR ---
PROGRESS PT ANXIOUS AND UPST AT START OF SHIFT. QUESTIONING WHY ALL HER HOME MEDS ARE NOT BEING GIVEN. MED REC REVIEWED AND UPDATED PT UPSET SHE IS NOT GETING NEXIUM. C/O HEARTBURN ALL DAY PER P. KAVON MCINTOSH MACHINE SET UP OPERATOR NOTIFIED ORDER FOR PROTONIX OBTAINED FIRST DOSE GIVEN WI EFECT. TO START DAILY DOSE IN AM. KAVON LOCKE BRUISE TRIMMER NOTIFIED OF UPDATED MED REC SHE STATED PHYSICIAN WOULD RESUME MEDS IN AM. VSS, WOUND VAC INACT WITH 125 CM SUCTION. CONTINUE POC.
[2020-09-25 04:56] VITALS: BP 110/61
[2020-09-25 08:18] VITALS: BP 125/70
--- NOTE | 2020-09-25 10:30 | HC ---
[facility] [place] [address] CONSULTATION Name: LISETTE SHELL Room #: 359-P [facility] IN .R.#: [id number] Admission: 09/19/20 Attend Phys: Valeria Dominguez Discharge: Date of : 52 Report #: [id number] THIS REPORT FOR: cc: STEVE SANDOVAL Physician not on staff Juanjose Rowell MD ~ DOC #: [id number] Juanjose Rowell MD DATE OF SERVICE: 09/19/2020 WOUND CARE CONSULTATION REQUESTING PHYSICIAN: Dr. Armando. CHIEF COMPLAINT: Abdominal wall wound. HISTORY OF PRESENT ILLNESS: This is a 70-year-old white female who home health nurses were contacted me this morning stating that she was having significant amount of drainage coming from her abdominal wall wound. The patient was actually seen by me yesterday in the clinic, had a pigtail drain removed that had been in over 3 weeks. The patient states that the drainage is now coming from her midline and abdominal incision and not from the area where the pigtail drain was located. Home health nurses state the drainage is so copious and significant that the patient cannot keep a dressing in place. It was felt at that time the patient needed to come to the hospital for further evaluation and possible further drainage of the abdominal wall what appears to be a seroma. The patient complains of mild pain associated with this. The patient denies any other associated concerns at this time except for the copious amount of drainage. PAST MEDICAL HISTORY: Significant for morbid obesity, multiple abdominal wall reconstructions, coronary artery disease. CURRENT MEDICATIONS: Multiple, I reviewed the patient's medication list. DRUG ALLERGIES: NONSTEROIDAL ANTI-INFLAMMATORIES. SOCIAL HISTORY: The patient does not smoke or drink alcohol. FAMILY HISTORY: Not pertinent to current medical condition. REVIEW OF SYSTEMS: CONSTITUTIONAL: The patient denies fevers or chills. NEUROLOGIC: The patient has overall generalized weakness, but no isolated weakness in arms or legs. EYES: No complaints. [facility] [address] [place] [address] CONSULTATION Name: LISETTE SHELL Room #: 359-P [facility] IN ..#: [id number] Admission: 09/19/20 Attend Phys: Valeria Dominguez Discharge: Date of : 52 Report #: [id number] ENT: No complaints. CARDIOVASCULAR: The patient denies chest pain, palpitations or peripheral edema. RESPIRATORY: The patient denies shortness of breath, cough, wheezing. GASTROINTESTINAL: The patient complains of generalized abdominal pain mainly along the incision with mild nausea, but no vomiting, diarrhea. GENITOURINARY: The patient has urgency or frequency. MUSCULOSKELETAL: No complaints. SKIN: There is a midline abdominal wall wound, which is draining. PHYSICAL EXAMINATION: VITAL SIGNS: Stable. The patient is afebrile. GENERAL: This is alert and oriented x3, morbidly obese white female who is in mild distress secondary to her symptoms. HEENT: Normocephalic, atraumatic. Mucous membranes are somewhat dry. Pupils are round. Sclerae white. NECK: Without JVD. LUNGS: Clear. HEART: Regular. ABDOMEN: Obese, soft, nontender. There is a significant amount of induration and scar tissue noted on the abdominal wall. Midline incision superiorly has a significant amount of seropurulent drainage noted. There is no actual increased erythema or warmth of the abdominal wall itself. There is no rebound or guarding. In the left lower quadrant where the pigtail drain was located, there is minimal drainage noted. EXTREMITIES: The patient moves all extremities without difficulty. NEUROLOGIC: Cranial nerves 2-12 grossly intact. Motor and sensory grossly intact. LABORATORY DATA: White count 6.1, hemoglobin 8.4, albumin 2.0. ASSESSMENT: 1. Abdominal wall fluid collection consistent with seroma. 2. Morbid obesity. 3. Multiple abdominal wall surgical repairs. 4. Generalized debility. 5. Protein calorie malnutrition severe with albumin of 2.0. PLAN: CT scan has been ordered for tonight. I have spoken with Dr. Singh about this patient who does not appear to be a surgical item at this time. If there is a significant fluid collection, we can drain this at the bedside in the morning and then hooked up the wound VAC at that time. I will make sure we maximize the patient's protein supplement for healing. Continue all of [place] [address] CONSULTATION Name: MILDREDANISALISETTE Gray Room #: 359-P AD[facility] IN M.R.#: [id number] Admission: 09/19/20 Attend Phys: Valeria Dominguez Discharge: Date of : 52 Report #: [id number] Juanjose Rowell MD TAS/AMI <ELECTRONICALLY SIGNED> By: Juanjose Rowell MD 09/25/20 1030 [id number] Juanjose Rowell MD /nt
[2020-09-25 10:52] VITALS: BP 125/70
[2020-09-25] MEDS ORDERED: AUGMENTIN 875-1 EACH PO (12:08)
--- NOTE | 2020-09-25 13:57 | NUR ---
DISCHARGE NOTE: JAXON reviewed chart and spoke with nursing and attending physician. Pt is medically stable for discharge home today. Pt to resume HH services with [facility]. JAXON faxed discharge ppwk to [facility]. Spoke with intake at , who states they received the ppwk. JAXON met with pt at bedside to discuss discharge plan. Pt has wound vac in place. JAXON contacted [employer] regarding pt's home wound vac. [employer] will deliver wound vac to the hospital this afternoon. Wound care will place wound vac prior to pt's discharge. JAXON updated pt, who is agreeable with discharge plan. Pt states her family will be able to provide transportation home when discharged. JAXON updated pt's nurse. Awaiting c.diff results at this time. Contact info for HH placed in pt's discharge summary. No additional SW needs identified at this time, but is available to assist should needs arise.
[2020-09-25 15:30] VITALS: BP 133/73
[2020-09-25 18:18] VITALS: BP 125/70
--- NOTE | 2020-09-25 18:35 | NUR ---
DR WHITAKER/DR ROSALES OFFICE INFORMATION/PHONE NUMBER PROVIDED TO PT FOR FOLLOW UP APPOINTMENT
--- NOTE | 2020-09-25 18:49 | NUR ---
IV D/C, HOME WOOD VAC CONNECTED PER EBENEZER (WOUND CARE CO-ORDINATOR ORDER). PT EDUCATED ABOUT WOUND VAC AND WHO TO CALL. PT IN HER PERSONAL CLOTHES. HOME MEDS GIVEN TO PT. DENIES ANY QUESTIONS. PT RIDE HERE, TAKEN DOWN VIA WHEEL CHAIR, ALL BELONGINGS WITH PT
--- NOTE | 2020-09-26 13:40 | P ---
[facility] [place] [address] PROCEDURE REPORT Name: LISETTE SHELL Room #: 359-P [facility] IN .R.#: [id number] Admission: 09/19/20 Attend Phys: Valeria Dominguez Discharge: 09/25/20 Date of : 52 Report #: [id number] THIS REPORT FOR: cc: STEVE SANDOVAL Physician not on staff Juanjose Rowell MD ~ DOC #: [id number] Juanjose Rowell MD DATE OF SERVICE: 09/20/2020 WOUND CARE PROCEDURE NOTE PERSONAL PHYSICIAN: Dr. Joel Armando CHIEF COMPLAINT: Abdominal wall fluid collection. PREPROCEDURE DIAGNOSES: 1. Abdominal wall fluid collection consistent with seroma versus abscess. 2. Morbid obesity. 3. Status post multiple abdominal wall surgeries. POSTPROCEDURE DIAGNOSES: 1. Abdominal wall fluid collection consistent with seroma versus abscess. 2. Morbid obesity. 3. Status post multiple abdominal wall surgeries. DESCRIPTION OF PROCEDURE: After timeout was taken, verbal consent was obtained. The patient had the abdominal wall superior incisions anesthetized with 1% lidocaine with epinephrine. Wound was then prepped with Betadine and then using a 10 blade, incision was made into the wound with prompt return of copious amounts of seropurulent material. The wound was extended to 3 x 3 cm with a depth approximately 11 cm. At that point in time, using Yankauer suction, approximately 500 mL of seropurulent drainage was removed. The abdomen itself was totally decompressed. At that time, a wound VAC was placed with black foam at 125 mm of continuous pressure. The patient tolerated the procedure well. Bleeding was minimal, easily controlled with pressure. The patient once again tolerated the procedure well. IMPRESSION: Abdominal wall seroma, now status post incision and drainage. MD KHUSHBU Bernstein/BEN/HUSSEIN [address] [address] PROCEDURE REPORT Name: LISETTE SHELL Room #: 359-P [facility]#: [id number] Admission: 09/19/20 Attend Phys: Valeria Dominguez Discharge: 09/25/20 Date of : 52 Report #: [id number] <ELECTRONICALLY SIGNED> By: Juanjose Rowell MD 09/26/20 1340 [id number] [id number] Juanjose Rowell MD /nt
== END 2020-09-25 18:48 | disposition home health service (06) | DRG 856 ==
LOC: 3W 13:13 → TBA 13:26 → 3W 13:26
PROVIDERS: Internal Medicine; Specialist; ADMIT Hospitalist; ATTEND Hospitalist
PROC: 0W9F0ZZ Drainage of Abdominal Wall, Open Approach (ICD-10-PCS; principal; 2020-09-20)
DX: T81.49XA Infection following a procedure, other surgical site, initial encounter (principal); E43 Unspecified severe protein-calorie malnutrition; N17.9 Acute kidney failure, unspecified; L02.211 Cutaneous abscess of abdominal wall; Z68.41 Body mass index [BMI] 40.0-44.9, adult; L76.34 Postprocedural seroma of skin and subcutaneous tissue following other procedure; I10 Essential (primary) hypertension; M10.9 Gout, unspecified; M19.90 Unspecified osteoarthritis, unspecified site; K21.9 Gastro-esophageal reflux disease without esophagitis; I48.91 Unspecified atrial fibrillation; I25.10 Atherosclerotic heart disease of native coronary artery without angina pectoris; E66.01 Morbid (severe) obesity due to excess calories; R53.81 Other malaise; K43.9 Ventral hernia without obstruction or gangrene; E78.5 Hyperlipidemia, unspecified; D63.8 Anemia in other chronic diseases classified elsewhere; Z88.8 Allergy status to other drugs, medicaments and biological substances; Z90.49 Acquired absence of other specified parts of digestive tract; Z88.6 Allergy status to analgesic agent; Z90.710 Acquired absence of both cervix and uterus; Z87.442 Personal history of urinary calculi; Y83.8 Other surgical procedures as the cause of abnormal reaction of the patient, or of later complication, without mention of misadventure at the time of the procedure; Y92.89 Other specified places as the place of occurrence of the external cause
CPT/HCPCS: 10779

== ENCOUNTER → 2020-10-08 | Outpatient (CLI) | payer OTHER ==
[~2020-10-08] MED LIST changes: +ALLOPURINOL 30300 M1 PO; +AUGMENTIN 875-1 EACH PO; +CICLOPIROX15 GM TOP
== END ==
LOC: HYPER 09:03
PROVIDERS: ATTEND Emergency Medicine
DX: T81.31XD Disruption of external operation (surgical) wound, not elsewhere classified, subsequent encounter (principal); E11.622 Type 2 diabetes mellitus with other skin ulcer; L98.492 Non-pressure chronic ulcer of skin of other sites with fat layer exposed; E66.01 Morbid (severe) obesity due to excess calories; E07.89 Other specified disorders of thyroid; E78.5 Hyperlipidemia, unspecified; I10 Essential (primary) hypertension; I25.10 Atherosclerotic heart disease of native coronary artery without angina pectoris; K21.9 Gastro-esophageal reflux disease without esophagitis; M19.90 Unspecified osteoarthritis, unspecified site; M10.9 Gout, unspecified; M81.0 Age-related osteoporosis without current pathological fracture; F41.9 Anxiety disorder, unspecified; Z90.710 Acquired absence of both cervix and uterus; Z68.41 Body mass index [BMI] 40.0-44.9, adult; Y83.8 Other surgical procedures as the cause of abnormal reaction of the patient, or of later complication, without mention of misadventure at the time of the procedure

== ENCOUNTER → 2020-10-22 | Outpatient (CLI) | payer OTHER | LOC: HYPER 09:13 | PROVIDERS: ATTEND Emergency Medicine | DX: T81.31XD Disruption of external operation (surgical) wound, not elsewhere classified, subsequent encounter (principal); E11.622 Type 2 diabetes mellitus with other skin ulcer; L98.492 Non-pressure chronic ulcer of skin of other sites with fat layer exposed; E66.01 Morbid (severe) obesity due to excess calories; E07.89 Other specified disorders of thyroid; E78.5 Hyperlipidemia, unspecified; I10 Essential (primary) hypertension; I25.10 Atherosclerotic heart disease of native coronary artery without angina pectoris; K21.9 Gastro-esophageal reflux disease without esophagitis; M19.90 Unspecified osteoarthritis, unspecified site; M10.9 Gout, unspecified; M81.0 Age-related osteoporosis without current pathological fracture; F41.9 Anxiety disorder, unspecified; Z90.710 Acquired absence of both cervix and uterus; Z68.41 Body mass index [BMI] 40.0-44.9, adult; Y83.8 Other surgical procedures as the cause of abnormal reaction of the patient, or of later complication, without mention of misadventure at the time of the procedure ==

== ENCOUNTER → 2020-11-04 | Outpatient (CLI) | payer OTHER | LOC: HYPER 08:35 | PROVIDERS: ATTEND Emergency Medicine | DX: T81.31XD Disruption of external operation (surgical) wound, not elsewhere classified, subsequent encounter (principal); E11.622 Type 2 diabetes mellitus with other skin ulcer; L98.492 Non-pressure chronic ulcer of skin of other sites with fat layer exposed; E11.69 Type 2 diabetes mellitus with other specified complication; M19.90 Unspecified osteoarthritis, unspecified site; M10.9 Gout, unspecified; I10 Essential (primary) hypertension; M81.0 Age-related osteoporosis without current pathological fracture; E78.5 Hyperlipidemia, unspecified; E66.01 Morbid (severe) obesity due to excess calories; F41.9 Anxiety disorder, unspecified; Z68.41 Body mass index [BMI] 40.0-44.9, adult; Z79.899 Other long term (current) drug therapy; Y83.8 Other surgical procedures as the cause of abnormal reaction of the patient, or of later complication, without mention of misadventure at the time of the procedure ==

== ENCOUNTER → 2020-11-18 | Outpatient (CLI) | payer OTHER | LOC: HYPER 09:34 | PROVIDERS: ATTEND Emergency Medicine Emergency Medical Services | DX: T81.31XD Disruption of external operation (surgical) wound, not elsewhere classified, subsequent encounter (principal); E11.622 Type 2 diabetes mellitus with other skin ulcer; L98.492 Non-pressure chronic ulcer of skin of other sites with fat layer exposed; E11.51 Type 2 diabetes mellitus with diabetic peripheral angiopathy without gangrene; M81.0 Age-related osteoporosis without current pathological fracture; I48.91 Unspecified atrial fibrillation; I25.10 Atherosclerotic heart disease of native coronary artery without angina pectoris; M10.9 Gout, unspecified; I10 Essential (primary) hypertension; E78.5 Hyperlipidemia, unspecified; E66.01 Morbid (severe) obesity due to excess calories; F41.9 Anxiety disorder, unspecified; Z68.41 Body mass index [BMI] 40.0-44.9, adult; Z98.890 Other specified postprocedural states; Z90.710 Acquired absence of both cervix and uterus; Z79.899 Other long term (current) drug therapy; Y83.8 Other surgical procedures as the cause of abnormal reaction of the patient, or of later complication, without mention of misadventure at the time of the procedure ==

== ENCOUNTER → 2020-12-03 | Outpatient (CLI) | payer OTHER | LOC: HYPER 08:15 | PROVIDERS: ATTEND Emergency Medicine | DX: T81.31XD Disruption of external operation (surgical) wound, not elsewhere classified, subsequent encounter (principal); E11.622 Type 2 diabetes mellitus with other skin ulcer; L98.492 Non-pressure chronic ulcer of skin of other sites with fat layer exposed; E11.69 Type 2 diabetes mellitus with other specified complication; M19.90 Unspecified osteoarthritis, unspecified site; M10.9 Gout, unspecified; I10 Essential (primary) hypertension; M81.0 Age-related osteoporosis without current pathological fracture; E78.5 Hyperlipidemia, unspecified; E66.01 Morbid (severe) obesity due to excess calories; F41.9 Anxiety disorder, unspecified; Z68.41 Body mass index [BMI] 40.0-44.9, adult; Z98.890 Other specified postprocedural states; Z90.710 Acquired absence of both cervix and uterus; Z79.899 Other long term (current) drug therapy; Y83.8 Other surgical procedures as the cause of abnormal reaction of the patient, or of later complication, without mention of misadventure at the time of the procedure ==

== ENCOUNTER → 2020-12-17 | Outpatient (CLI) | payer OTHER | LOC: HYPER 08:45 | PROVIDERS: ATTEND Emergency Medicine | DX: T81.31XD Disruption of external operation (surgical) wound, not elsewhere classified, subsequent encounter (principal); E11.622 Type 2 diabetes mellitus with other skin ulcer; L98.492 Non-pressure chronic ulcer of skin of other sites with fat layer exposed; E66.01 Morbid (severe) obesity due to excess calories; E78.5 Hyperlipidemia, unspecified; I10 Essential (primary) hypertension; K21.9 Gastro-esophageal reflux disease without esophagitis; M19.90 Unspecified osteoarthritis, unspecified site; M10.9 Gout, unspecified; M81.0 Age-related osteoporosis without current pathological fracture; F41.9 Anxiety disorder, unspecified; Z68.41 Body mass index [BMI] 40.0-44.9, adult; Z90.710 Acquired absence of both cervix and uterus; Y83.8 Other surgical procedures as the cause of abnormal reaction of the patient, or of later complication, without mention of misadventure at the time of the procedure ==

== ENCOUNTER → 2020-12-31 | Outpatient (CLI) | payer OTHER | LOC: HYPER 08:23 | PROVIDERS: ATTEND Emergency Medicine | DX: T81.31XD Disruption of external operation (surgical) wound, not elsewhere classified, subsequent encounter (principal); E11.622 Type 2 diabetes mellitus with other skin ulcer; L98.492 Non-pressure chronic ulcer of skin of other sites with fat layer exposed; L84 Corns and callosities; E66.01 Morbid (severe) obesity due to excess calories; E78.5 Hyperlipidemia, unspecified; I10 Essential (primary) hypertension; K21.9 Gastro-esophageal reflux disease without esophagitis; M19.90 Unspecified osteoarthritis, unspecified site; M10.9 Gout, unspecified; M81.0 Age-related osteoporosis without current pathological fracture; F41.9 Anxiety disorder, unspecified; Z68.41 Body mass index [BMI] 40.0-44.9, adult; Z90.710 Acquired absence of both cervix and uterus; Y83.8 Other surgical procedures as the cause of abnormal reaction of the patient, or of later complication, without mention of misadventure at the time of the procedure ==

== ENCOUNTER → 2021-01-14 | Outpatient (CLI) | payer OTHER | LOC: HYPER 08:22 | PROVIDERS: ATTEND Emergency Medicine | DX: T81.31XD Disruption of external operation (surgical) wound, not elsewhere classified, subsequent encounter (principal); E11.622 Type 2 diabetes mellitus with other skin ulcer; L98.492 Non-pressure chronic ulcer of skin of other sites with fat layer exposed; L84 Corns and callosities; E66.01 Morbid (severe) obesity due to excess calories; E78.5 Hyperlipidemia, unspecified; I10 Essential (primary) hypertension; K21.9 Gastro-esophageal reflux disease without esophagitis; M19.90 Unspecified osteoarthritis, unspecified site; M10.9 Gout, unspecified; M81.0 Age-related osteoporosis without current pathological fracture; F41.9 Anxiety disorder, unspecified; Z68.41 Body mass index [BMI] 40.0-44.9, adult; Z90.710 Acquired absence of both cervix and uterus; Y83.8 Other surgical procedures as the cause of abnormal reaction of the patient, or of later complication, without mention of misadventure at the time of the procedure ==

== ENCOUNTER → 2021-01-28 | Outpatient (CLI) | payer OTHER | LOC: HYPER 08:22 | PROVIDERS: ATTEND Emergency Medicine | DX: T81.31XD Disruption of external operation (surgical) wound, not elsewhere classified, subsequent encounter (principal); E11.622 Type 2 diabetes mellitus with other skin ulcer; L98.492 Non-pressure chronic ulcer of skin of other sites with fat layer exposed; E11.69 Type 2 diabetes mellitus with other specified complication; M10.9 Gout, unspecified; I10 Essential (primary) hypertension; M81.0 Age-related osteoporosis without current pathological fracture; E78.5 Hyperlipidemia, unspecified; E89.0 Postprocedural hypothyroidism; F41.9 Anxiety disorder, unspecified; E66.01 Morbid (severe) obesity due to excess calories; Z68.41 Body mass index [BMI] 40.0-44.9, adult; Z79.899 Other long term (current) drug therapy; Z90.710 Acquired absence of both cervix and uterus; Y83.8 Other surgical procedures as the cause of abnormal reaction of the patient, or of later complication, without mention of misadventure at the time of the procedure ==

== ENCOUNTER → 2021-02-11 | Outpatient (CLI) | payer OTHER | LOC: HYPER 10:01 | PROVIDERS: ATTEND Emergency Medicine | DX: T81.31XD Disruption of external operation (surgical) wound, not elsewhere classified, subsequent encounter (principal); E11.622 Type 2 diabetes mellitus with other skin ulcer; L98.492 Non-pressure chronic ulcer of skin of other sites with fat layer exposed; L84 Corns and callosities; E11.69 Type 2 diabetes mellitus with other specified complication; I10 Essential (primary) hypertension; E78.5 Hyperlipidemia, unspecified; E89.0 Postprocedural hypothyroidism; K21.9 Gastro-esophageal reflux disease without esophagitis; M81.0 Age-related osteoporosis without current pathological fracture; M10.9 Gout, unspecified; F41.9 Anxiety disorder, unspecified; E66.01 Morbid (severe) obesity due to excess calories; Z68.41 Body mass index [BMI] 40.0-44.9, adult; Z90.710 Acquired absence of both cervix and uterus; Y83.8 Other surgical procedures as the cause of abnormal reaction of the patient, or of later complication, without mention of misadventure at the time of the procedure ==

== ENCOUNTER → 2021-02-20 | Outpatient (CLI) | payer OTHER | LOC: HYPER 10:39 | PROVIDERS: ATTEND Emergency Medicine | DX: T81.31XD Disruption of external operation (surgical) wound, not elsewhere classified, subsequent encounter (principal); E11.622 Type 2 diabetes mellitus with other skin ulcer; L98.492 Non-pressure chronic ulcer of skin of other sites with fat layer exposed; E11.69 Type 2 diabetes mellitus with other specified complication; M19.90 Unspecified osteoarthritis, unspecified site; I48.91 Unspecified atrial fibrillation; I25.10 Atherosclerotic heart disease of native coronary artery without angina pectoris; M10.9 Gout, unspecified; M81.0 Age-related osteoporosis without current pathological fracture; I11.9 Hypertensive heart disease without heart failure; E78.5 Hyperlipidemia, unspecified; E66.01 Morbid (severe) obesity due to excess calories; F41.9 Anxiety disorder, unspecified; Z68.41 Body mass index [BMI] 40.0-44.9, adult; Z90.710 Acquired absence of both cervix and uterus; Z98.890 Other specified postprocedural states; Z79.899 Other long term (current) drug therapy; Y83.8 Other surgical procedures as the cause of abnormal reaction of the patient, or of later complication, without mention of misadventure at the time of the procedure ==

== ENCOUNTER → 2021-03-06 | Outpatient (CLI) | payer OTHER | LOC: HYPER 09:47 | PROVIDERS: ATTEND Emergency Medicine | DX: T81.31XD Disruption of external operation (surgical) wound, not elsewhere classified, subsequent encounter (principal); E11.622 Type 2 diabetes mellitus with other skin ulcer; L98.492 Non-pressure chronic ulcer of skin of other sites with fat layer exposed; L84 Corns and callosities; E11.69 Type 2 diabetes mellitus with other specified complication; M19.90 Unspecified osteoarthritis, unspecified site; I48.91 Unspecified atrial fibrillation; I25.10 Atherosclerotic heart disease of native coronary artery without angina pectoris; M10.9 Gout, unspecified; M81.0 Age-related osteoporosis without current pathological fracture; I11.9 Hypertensive heart disease without heart failure; E78.5 Hyperlipidemia, unspecified; E66.01 Morbid (severe) obesity due to excess calories; F41.9 Anxiety disorder, unspecified; Z68.41 Body mass index [BMI] 40.0-44.9, adult; Z90.710 Acquired absence of both cervix and uterus; Y83.8 Other surgical procedures as the cause of abnormal reaction of the patient, or of later complication, without mention of misadventure at the time of the procedure ==

== ENCOUNTER → 2021-03-27 | Outpatient (CLI) | payer OTHER | LOC: HYPER 11:02 | PROVIDERS: ATTEND Emergency Medicine | DX: T81.31XD Disruption of external operation (surgical) wound, not elsewhere classified, subsequent encounter (principal); E11.622 Type 2 diabetes mellitus with other skin ulcer; L98.492 Non-pressure chronic ulcer of skin of other sites with fat layer exposed; L84 Corns and callosities; E11.69 Type 2 diabetes mellitus with other specified complication; M19.90 Unspecified osteoarthritis, unspecified site; I48.91 Unspecified atrial fibrillation; I25.10 Atherosclerotic heart disease of native coronary artery without angina pectoris; M10.9 Gout, unspecified; E66.01 Morbid (severe) obesity due to excess calories; F41.9 Anxiety disorder, unspecified; K21.9 Gastro-esophageal reflux disease without esophagitis; Z68.41 Body mass index [BMI] 40.0-44.9, adult; Y83.8 Other surgical procedures as the cause of abnormal reaction of the patient, or of later complication, without mention of misadventure at the time of the procedure ==

== ENCOUNTER → 2021-04-10 | Outpatient (CLI) | payer OTHER | LOC: HYPER 13:12 | PROVIDERS: ATTEND Emergency Medicine | DX: T81.31XD Disruption of external operation (surgical) wound, not elsewhere classified, subsequent encounter (principal); E11.622 Type 2 diabetes mellitus with other skin ulcer; L98.492 Non-pressure chronic ulcer of skin of other sites with fat layer exposed; M19.90 Unspecified osteoarthritis, unspecified site; I48.91 Unspecified atrial fibrillation; I25.10 Atherosclerotic heart disease of native coronary artery without angina pectoris; M10.9 Gout, unspecified; I10 Essential (primary) hypertension; M81.0 Age-related osteoporosis without current pathological fracture; E78.5 Hyperlipidemia, unspecified; E66.01 Morbid (severe) obesity due to excess calories; F41.9 Anxiety disorder, unspecified; Z68.41 Body mass index [BMI] 40.0-44.9, adult; E89.0 Postprocedural hypothyroidism; Z79.899 Other long term (current) drug therapy; Y83.8 Other surgical procedures as the cause of abnormal reaction of the patient, or of later complication, without mention of misadventure at the time of the procedure ==